=== PATIENT | female | born 1940 | race Caucasian/White ===

== ENCOUNTER 2017-11-08 14:37 | Inpatient (IN) | payer MEDICARE ==
[~2017-11-08] VITALS: Ht 165.1 cm; Wt 60.0 kg
[~2017-11-08 14:37] MED LIST: ACET325S8 PO; ASPI81 PO; CALC-137 PO; CLON0.5T PO; COEN100C5 PO; COZA50TA PO; DICL50 PO; DONE10TA14; LANSO15 PO; NAME10TA PO; OMEG600C2 PO; PRAV20 PO; SERT25TA83 PO; SUCR1TAB PO; TAB-TAB PO; ULTR50TA PO; VITA400D PO
[2017-11-08 14:46] VITALS: BP 193/92; PULSE 70; RESP 20; O2SAT 96
[2017-11-08 15:15] VITALS: BP 193/92; PULSE 70; RESP 17; TEMP 98.5; O2SAT 95
[2017-11-08] MEDS ORDERED: MORPHINE SULFATE 4 MG/ML INJ IV PUSH ONE (15:15)
--- NOTE | 2017-11-08 15:21 | PD ---
HPI Chief Complaint: Fall Time Seen by Provider: 15:05 Travel History International Travel<30 days: No Contact w/Intl Traveler<30days: No Traveled to known affect area: No History of Present Illness HPI 77-year-old female presents emergency department for evaluation of right hip pain that occurred after a fall just prior to arrival. Patient arrives by EVAC states that patient does not know how she fell. She apparently has a history of dementia and is very poor historian. Her arrives during the initial evaluation and assist with a history. Says that she does have a history of Parkinson's like movements and dementia. Says that he heard her fall and was immediately able to assist her however, she was unable to walk because of the pain in her left hip and leg. Says that he found her laying on her left side with her arm under her. I asked the patient where she was having pain and she points to her left hip. She denies any numbness or tingling. He tells me that she has a history of a compression fracture and a disc protrusion in the lower lumbar region but does not complain of any pain today. She also have a history of urinary incontinence. PFSH Past Medical History Hx Anticoagulant Therapy: Yes Arthritis: Yes Heart Rhythm Problems: No Cancer: No Cardiac Catheterization: No Cardiovascular Problems: Yes High Cholesterol: Yes Chest Pain: No Congestive Heart Failure: No Dementia: Yes Diabetes: No Endocrine: No Gastrointestinal Disorders: Yes (GERD) GERD: Yes Genitourinary: No Hepatitis: No Hiatal Hernia: No Hypertension: Yes Immune Disorder: No Implanted Vascular Access Dvce: Yes Musculoskeletal: Yes (ARTHRITIS) Neurologic: No Psychiatric: No Reproductive: No Respiratory: No Immunizations Current: No Myocardial Infarction: No Thyroid Disease: No Ulcer: No Tetanus Vaccination: Unknown Influenza Vaccination: Yes ?: Not Menopausal: Yes : 3 Para: 3 Past Surgical History Abdominal Surgery: No AICD: No Arteriovenous Shunt: No Cardiac Surgery: No Coronary Artery Bypass Graft: No Ear Surgery: No Endocrine Surgery: No Eye Surgery: No Genitourinary Surgery: No Gynecologic Surgery: No Insulin Pump: No Joint Replacement: Yes (RTK 08/18) Oral Surgery: Yes (T & A) Pacemaker: No Thoracic Surgery: No Tonsillectomy: Yes Other Surgery: Yes Social History Alcohol Use: No Tobacco Use: No Substance Use: No Allergies-Medications (Allergen,Severity, Reaction): Coded Allergies: Sulfa (Sulfonamide Antibiotics) (Unverified Allergy, Mild, 11/08/17) Reported Meds & Prescriptions Reported Meds & Active Scripts Active Reported Vitamin D3 (Cholecalciferol) 400 Unit Cap 1,600 Units PO DAILY Vitamin B-12 (Cyanocobalamin) 1,000 Mcg Tab 2,000 Mcg PO DAILY Mapap (Acetaminophen) 325 Mg Tab 650 Mg PO Q4-6H PRN Coq10 (Coenzyme Q10 (Ubidecarenone)) 50 Mg Cap Coq-10 (Coenzyme Q10 (Ubidecarenone)) 50 Mg Cap 200 Mg PO DAILY Aspirin 81 Mg Chew 81 Mg CHEW DAILY [Calcium] 900 Mg PO DAILY Multiple Vitamin 1 Tab 1 Tab PO DAILY [[place] 3 Krill Oil] 500 Mg PO DAILY Ofloxacin Opth Drops 0.3 % Drops 1 Drop EACH EYE Q6HR Tramadol (Tramadol HCl) 50 Mg Tab 50 Mg PO Q8H PRN Pantoprazole (Pantoprazole Sodium) 40 Mg Tab 40 Mg PO DAILY Pravastatin 40 Mg Tab 40 Mg PO BID Bupropion HCl ER 24 HR (Bupropion HCl) 150 Mg Tab 150 Mg DAILY Deplin (m-Ogvqmmeggxii-Ufblp) 15 Mg Cap Trintellix (Vortioxetine) 20 Mg Tab 20 Mg PO DAILY Carbidopa-Levodopa 25-100 Mg Tab 1 Tab PO Q8HR Clonazepam 0.5 Mg Tab 0.5 Mg PO DAILY Donepezil 10 Mg Tab 10 Mg PO HS Memantine 10 Mg Tab 10 Mg PO DAILY Losartan (Losartan Potassium) 25 Mg Tab 25 Mg PO DAILY Azithromycin 250 Mg Tab 250 Mg PO DIRECTED Take 2 tabs (500 mg) on day 1 then 1 tab daily x 4 days. Review of Systems Except as stated in HPI: all other systems reviewed are Neg Physical Exam Narrative GENERAL: WD, thin, in mild distress, fully packaged upon evaluation. SKIN: Focused skin assessment warm/dry. left arm- skin tears present with hematoma to mid forearm HEAD: Atraumatic. Normocephalic. EYES: Pupils equal and round. No scleral icterus. No injection or drainage. PERRLA, EOMI ENT: No nasal bleeding or discharge. Mucous membranes pink and moist. NECK: Trachea midline. No JVD. No midline tenderness CARDIOVASCULAR: Regular rate and rhythm. No murmur appreciated. RESPIRATORY: No accessory muscle use. Clear to auscultation. Breath sounds equal bilaterally. GASTROINTESTINAL: Abdomen soft, non-tender, nondistended. Hepatic and splenic margins not palpable. MUSCULOSKELETAL: No obvious deformities. No clubbing. No cyanosis. No edema. BACK: No CVA tenderness. No rash. No point tenderness on palpation of the spine. NEUROLOGICAL: Awake and alert. No obvious cranial nerve deficits. Motor grossly within normal limits. Normal speech. PSYCHIATRIC: Appropriate mood and affect; insight and judgment normal. Data Data Last Documented VS Vital Signs Date Time Temp Pulse Resp B/P (MAP) Pulse Ox O2 Delivery O2 Flow Rate FiO2 11/08/17 15:15 98.5 70 17 193/92 (125) 95 Room Air Orders Orders Ct Brain W/O Iv Contrast(Rout) (11/08/17 ) Ct Cerv Spine W/O Contrast (11/08/17 ) Femur (Ap & Lat/2vws) (11/08/17 ) Electrocardiogram (11/08/17 15:05) Complete Blood Count With Diff (11/08/17 15:05) Comprehensive Metabolic Panel (11/08/17 15:05) Prothrombin Time / Inr (Pt) (11/08/17 15:05) Act Partial Throm Time (Ptt) (11/08/17 15:05) Urinalysis - C+S If Indicated (11/08/17 15:05) Chest, Single Ap (11/08/17 15:05) Femur (Ap & Lat/2vws) (11/08/17 15:05) Iv Access Insert/Monitor (11/08/17 15:05) Morphine Inj (Morphine Inj) (11/08/17 15:15) Hip, Uni(Ap&Lat) W Ap Pelvis (11/08/17 ) Hand, Complete ([id number]) (11/08/17 ) Troponin I (11/08/17 15:23) Ckmb (Isoenzyme) Profile (11/08/17 15:23) Ondansetron Inj (Zofran Inj) (11/08/17 15:30) Ct Pelvis W/O Iv Contrast (11/08/17 ) Urinary Catheter Insert/Apply (11/08/17 16:36) Admit Order (Ed Use Only) (11/08/17 17:39) Labs Laboratory Tests Test 4/19/18 15:30 11/08/17 17:19 White Blood Count 11.6 TH/MM3 Red Blood Count 3.71 MIL/MM3 Hemoglobin 12.2 GM/DL Hematocrit 35.7 % Mean Corpuscular Volume 96.3 FL Mean Corpuscular Hemoglobin 32.9 PG Mean Corpuscular Hemoglobin Concent 34.2 % Red Cell Distribution Width 11.9 % Platelet Count 334 TH/MM3 Mean Platelet Volume 7.9 FL Neutrophils (%) (Auto) 86.0 % Lymphocytes (%) (Auto) 7.2 % Monocytes (%) (Auto) 6.2 % Eosinophils (%) (Auto) 0.3 % Basophils (%) (Auto) 0.3 % Neutrophils # (Auto) 9.9 TH/MM3 Lymphocytes # (Auto) 0.8 TH/MM3 Monocytes # (Auto) 0.7 TH/MM3 Eosinophils # (Auto) 0.0 TH/MM3 Basophils # (Auto) 0.0 TH/MM3 CBC Comment DIFF FINAL Differential Comment Prothrombin Time 10.7 SEC Prothromb Time International Ratio 1.1 RATIO Activated Partial Thromboplast Time 25.2 SEC Blood Urea Nitrogen 8 MG/DL Creatinine 0.90 MG/DL Random Glucose 90 MG/DL Total Protein 7.5 GM/DL Albumin 3.5 GM/DL Calcium Level 9.1 MG/DL Alkaline Phosphatase 71 U/L Aspartate Amino Transf (AST/SGOT) 24 U/L Alanine Aminotransferase (ALT/SGPT) 9 U/L Total Bilirubin 0.5 MG/DL Sodium Level 136 MEQ/L Potassium Level 4.3 MEQ/L Chloride Level 100 MEQ/L Carbon Dioxide Level 25.8 MEQ/L Anion Gap 10 MEQ/L Estimat Glomerular Filtration Rate 61 ML/MIN Total Creatine Kinase 88 U/L Troponin I LESS THAN 0.02 NG/ML Urine Color YELLOW Urine Turbidity CLEAR Urine pH 6.0 Urine Specific [place] 1.016 Urine Protein TRACE mg/dL Urine Glucose (UA) NEG mg/dL Urine Ketones 80 mg/dL Urine Occult Blood LARGE Urine Nitrite NEG Urine Bilirubin NEG Urine Urobilinogen LESS THAN 2.0 MG/DL Urine Leukocyte Esterase NEG Urine RBC /hpf Urine Hyaline Casts 3 /lpf Urine Mucus FEW /lpf Microscopic Urinalysis Comment CATH-CULT NOT IND MDM Medical Decision Making Medical Screen Exam Complete: Yes Emergency Medical Condition: Yes Differential Diagnosis Mechanical fall, dehydration, urinary tract infection, hip fracture, dementia Narrative Course 77-year-old female presents emergency department for evaluation of left hip pain that occurred after a fall just prior to arrival. Patient arrives by EVAC states that patient does not know how she fell. She apparently has a history of dementia and is very poor historian. Her , Ed Feliz, arrives during the initial evaluation and assist with a history. Says that she does have a history of Parkinson's like movements and dementia. Says that he heard her fall and was immediately able to assist her however, she was unable to walk because of the pain in her left hip and leg. Says that he found her laying on her left side with her arm under her. I asked the patient where she was having pain and she points to her left hip. She denies any numbness or tingling. He tells me that she has a history of a compression fracture and a disc protrusion in the lower lumbar region but does not complain of any pain today. She also have a history of urinary incontinence. Patient is a very poor historian as patient has severe dementia. states that her last surgery required anesthesia and patient never completely recovered from this. Consider spinal anesthesia for hip surgery. She saw Dr. Mcdonald for this surgery. EKG shows sinus rhythm at rate 79 without STEMI changes. Patient was given morphine and Zofran for pain. Labs and imaging studies ordered. Last Impressions Femur X-Ray 11/08/17 1505 Signed Impressions: Service Date/Time: October 15:45 - CONCLUSION: 1. No acute fracture or dislocation. Blaise Saul MD Chest X-Ray 11/08/17 1505 Signed Impressions: Service Date/Time: October 15:42 - CONCLUSION: Old granulomatous disease. Nothing acute. Girish Miller MD Pelvis CT 11/08/17 0000 Signed Impressions: Service Date/Time: October 16:24 - CONCLUSION: 1. Mildly angulated left femoral neck fracture. 2. Nondisplaced fractures of the left superior and inferior pubic rami. 3. Uncomplicated sigmoid diverticulosis. Nitish Mckeon MD Hip and Pelvis X-Ray 11/08/17 0000 Signed Impressions: Service Date/Time: October 15:46 - CONCLUSION: Subcapital fracture of the left hip. Girish Miller MD Head CT 11/08/17 0000 Signed Impressions: Service Date/Time: October 16:18 - CONCLUSION: 1. No evidence of acute infarct, hemorrhage, mass or edema. 2. Stable exam. Nitish Mckeon MD Hand X-Ray 11/08/17 0000 Signed Impressions: Service Date/Time: October 16:09 - CONCLUSION: 1. No evidence of acute fracture. 2. Severe bone demineralization. Nitish Mckeon MD Femur X-Ray 11/08/17 0000 Signed Impressions: Service Date/Time: October 15:46 - CONCLUSION: Left femoral neck fracture and pelvic fractures David Holder MD Cervical Spine CT 11/08/17 0000 Signed Impressions: Service Date/Time: October 16:18 - CONCLUSION: 1. Degenerative disc disease with spondylosis. 2. Intact vertebral body alignment. 3. No evidence of acute fracture. Nitish Mckeon MD My attending I spoke with the family regarding the findings. Advised that patient will require admission and repair of her hip fracture. I spoke with Dr. Andrew who accepted this patient. He advised that he place patient of Dr. Jalloh's service. Or 30 follow. Physician Communication Physician Communication I spoke with Dr. Andrew who accepted this patient. Was asked to place this patient under Dr. Jalloh. Diagnosis Primary Impression: Hip fracture Qualified Codes: S72.002A - Fracture of unspecified part of neck of left femur , initial encounter for closed fracture Admitting Information Admitting Physician Requests: Admit Condition: Stable Racquel Mann Nov 08, 2017 15:21
[2017-11-08] MEDS ORDERED: AZIT250T3 PO (15:23)
[2017-11-08] MEDS ORDERED: PRAV40TA2 PO (15:23)
[2017-11-08] MEDS ORDERED: LOSA25TA PO (15:23)
[2017-11-08] MEDS ORDERED: TRAM50TA PO (15:23)
[2017-11-08] MEDS ORDERED: DONE10TA7 PO (15:23)
[2017-11-08] MEDS ORDERED: VORT1TAB3 PO (15:23)
[2017-11-08] MEDS ORDERED: MEMA1TAB2 PO (15:23)
[2017-11-08] MEDS ORDERED: CLON0.5T PO (15:23)
[2017-11-08] MEDS ORDERED: L-MECAP2 (15:23)
[2017-11-08] MEDS ORDERED: PANT40TA3 PO (15:23)
[2017-11-08] MEDS ORDERED: BUPR150T3 (15:23)
[2017-11-08] MEDS ORDERED: CARB25TA9 PO (15:23)
[2017-11-08] MEDS ORDERED: ONDANSETRON HCL 4 MG/2 ML VIAL IV PUSH ONE (15:30)
[2017-11-08] MEDS ORDERED: COQ-50CA2 PO (15:37)
[2017-11-08] MEDS ORDERED: MULTTAB67 PO (15:37)
[2017-11-08] MEDS ORDERED: ASPI-516 CHEW (15:37)
[2017-11-08] MEDS ORDERED: CALCTAB98 PO (15:37)
[2017-11-08] MEDS ORDERED: VITA10002 PO (15:37)
[2017-11-08] MEDS ORDERED: CHOL1CAP8 PO (15:37)
[2017-11-08] MEDS ORDERED: OFLO0.3D5 EACH EYE (15:37)
[2017-11-08] MEDS ORDERED: OMEGA 3 KRILL OIL PO (15:37)
[2017-11-08] MEDS ORDERED: MAPA325T PO (15:37)
[2017-11-08] MEDS ORDERED: COQ150CA (15:37)
[2017-11-08 16:09] LABS: AUTOMATED NEUTROPHIL # 9.9 TH/MM3 (1.8-7.7); BASOPHIL % 0.3 % (0.0-2.0); EOSINOPHIL % 0.3 % (0.0-4.0); HEMATOCRIT 35.7 % (35.0-46.0); HEMOGLOBIN 12.2 GM/DL (11.6-15.3); LYMPH % 7.2 % (9.0-44.0); LYMPHOCYTE # 0.8 TH/MM3 (1.0-4.8); MEAN CELL VOLUME 96.3 FL (80.0-100.0); MEAN CORPUSCULAR HEMOGLOBIN 32.9 PG (27.0-34.0); MEAN CORPUSCULAR HGB CONC 34.2 % (32.0-36.0); MEAN PLATELET VOLUME 7.9 FL (7.0-11.0); MONO % 6.2 % (0.0-8.0); MONOCYTE # 0.7 TH/MM3 (0-0.9); PLATELET COUNT 334 TH/MM3 (150-450); RED BLOOD COUNT 3.71 MIL/MM3 (4.00-5.30); RED CELL DISTRIBUTION WIDTH 11.9 % (11.6-17.2); WHITE BLOOD COUNT 11.6 TH/MM3 (4.0-11.0)
[2017-11-08 16:24] LABS: INTERNATIONAL NORMALIZED RATIO 1.1 RATIO; PROTHROMBIN TIME - PATIENT 10.7 SEC (9.8-11.6)
[2017-11-08 16:26] LABS: ALBUMIN 3.5 GM/DL (3.4-5.0); AST (GOT) 24 U/L (15-37); BICARBONATE 25.8 MEQ/L (21.0-32.0); BLOOD UREA NITROGEN 8 MG/DL (7-18); CALCIUM 9.1 MG/DL (8.5-10.1); CHLORIDE 100 MEQ/L (98-107); GLOMERULAR FILTRATION RATE 61 ML/MIN (>89); GLUCOSE,RANDOM 90 MG/DL (74-106); SODIUM (NA) 136 MEQ/L (136-145)
[2017-11-08 16:29] LABS: ALKALINE PHOSPHATASE 71 U/L (45-117); ALT (GPT) 9 U/L (10-53); TOTAL BILIRUBIN ADULT 0.5 MG/DL (0.2-1.0); TOTAL PROTEIN 7.5 GM/DL (6.4-8.2)
[2017-11-08 16:32] LABS: TROPONIN I LESS THAN 0.02 NG/ML (0.02-0.05)
--- NOTE | 2017-11-08 16:43 | RADRPT ---
EXAM DATE/TIME: 11/08/2017 15:45 [facility] COMPARISON: No previous studies available for comparison. INDICATIONS : Fell at home. MEDICAL HISTORY : Parkinson's, dementia per nurse SURGICAL HISTORY : right knee replacement ENCOUNTER: Initial ACUITY: 1 day PAIN SCORE: Non-responsive. LOCATION: Right femur FINDINGS: Two view examination of the right femur demonstrates no evidence of fracture or dislocation. There is a total knee arthroplasty in place. Bony mineralization is normal. The soft tissue structures are i ntact. CONCLUSION: 1. No acute fracture or dislocation. Blaise Saul MD on November 08, 2017 at 16:31 Board Certified Radiologist. This report was verified electronically.
--- NOTE | 2017-11-08 16:45 | RADRPT ---
EXAM DATE/TIME: 11/08/2017 16:09 [facility] COMPARISON: No previous studies available for comparison. INDICATIONS : Fell at home. MEDICAL HISTORY : Parkinson's , dementia per nurse SURGICAL HISTORY : right knee replacement ENCOUNTER: Initial ACUITY: 1 day PAIN SCORE: Non-responsive. LOCATION: Left hand FINDINGS: Three view examination of the left hand demonstrates no soft tissue swelling, dislocation, or fractur e. The carpal bones appear intact. The interphalangeal and metacarpophalangeal joints are intact. Severe bone demineralization is noted. CONCLUSION: 1. No evidence of acute fracture. 2. Severe bone demineralization. Nitish Mckeon MD on November 08, 2017 at 16:42 Board Certified Radiologist. This report was verified electronically.
--- NOTE | 2017-11-08 16:46 | RADRPT ---
EXAM DATE/TIME: 11/08/2017 16:18 [facility] COMPARISON: CT BRAIN W/O CONTRAST, June 08, 2015, 19:31. INDICATIONS : Fall, altered mental status RADIATION DOSE: 38.27 CTDIvol (mGy) MEDICAL HISTORY : Dementia. Hypertension. Gastroesophageal reflux disease. SURGICAL HISTORY : None. ENCOUNTER: Initial ACUITY: 1 day PAIN SCALE: 5/10 LOCATION: Bilateral cranial TECHNIQUE: Multiple contiguous axial images were obtained of the head. Using automated exposure control and adj ustment of the mA and/or kV according to patient size, radiation dose was kept as low as reasonably a chievable to obtain optimal diagnostic quality images. DICOM format image data is available electro nically for review and comparison. FINDINGS: CEREBRUM: The ventricles are normal for age. No evidence of midline shift, mass lesion, hemorrhage or acute in farction. No extra-axial fluid collections are seen. POSTERIOR FOSSA: The cerebellum and brainstem are intact. The 4th ventricle is midline. The cerebellopontine angle i s unremarkable. EXTRACRANIAL: The visualized portion of the orbits is intact. SKULL: The calvaria is intact. No evidence of skull fracture. CONCLUSION: 1. No evidence of acute infarct, hemorrhage, mass or edema. 2. Stable exam. Nitish Mckeon MD on November 08, 2017 at 16:44 Board Certified Radiologist. This report was verified electronically.
--- NOTE | 2017-11-08 16:49 | RADRPT ---
EXAM DATE/TIME: 11/08/2017 15:42 [facility] COMPARISON: CHEST SINGLE AP, June 08, 2015, 18:39. INDICATIONS : Fell at home. MEDICAL HISTORY : Parkinson's, dementia per nurse SURGICAL HISTORY : right knee replacement ENCOUNTER: Initial ACUITY: 1 day PAIN SCORE: Non-responsive. LOCATION: Bilateral chest FINDINGS: A single view of the chest demonstrates the lungs to be symmetrically aerated without evidence of mas s, infiltrate or effusion. Granulomatous calcifications in the right paratracheal and right hilar dis tribution. Heart size is normal. Osseous structures are intact. CONCLUSION: Old granulomatous disease. Nothing acute. Girish Miller MD on November 08, 2017 at 16:40 Board Certified Radiologist. This report was verified electronically.
--- NOTE | 2017-11-08 16:50 | RADRPT ---
EXAM DATE/TIME: 11/08/2017 16:18 [facility] COMPARISON: No previous studies available for comparison. INDICATIONS : Fall RADIATION DOSE: 17.22 CTDIvol (mGy) MEDICAL HISTORY : Dementia. Hypertension. Gastroesophageal reflux disease. SURGICAL HISTORY : None. ENCOUNTER: Initial ACUITY: 1 day PAIN SCALE: 4/10 LOCATION: neck TECHNIQUE: Volumetric scanning of the cervical spine was performed. Multiplanar reconstructions in the sagittal, coronal and oblique axial planes were performed. Using automated exposure control and adjustment o f the mA and/or kV according to patient size, radiation dose was kept as low as reasonably achievable to obtain optimal diagnostic quality images. DICOM format image data is available electronically f or review and comparison. FINDINGS: Alignment: Intact without evidence of traumatic listhesis. Osseous structures and facet joints: Vertebral bodies and posterior elements are intact without evidence of fracture. Facet joints are sat isfactory aligned. Intervertebral disc spaces: Moderate degenerative disc disease with disc space narrowing and marginal spondylosis is noted. There are significant changes at C4-5, C5-6 and C6-7. There is no evidence of soft disc extrusion. Neurologic structures: No evidence of epidural, intradural or intramedullary soft tissue abnormalities. CONCLUSION: 1. Degenerative disc disease with spondylosis. 2. Intact vertebral body alignment. 3. No evidence of acute fracture. Nitish Mckeon MD on November 08, 2017 at 16:44 Board Certified Radiologist. This report was verified electronically.
--- NOTE | 2017-11-08 17:00 | PD ---
Physical Exam Date Seen by Provider: Nov 08, 2017 Narrative The patient presents status post a fall for evaluation of probable left hip fracture. Her did not witness the fall but heard it and immediately went to her and found her lying on her left side. He reports that she has been complaining bitterly with left hip pain since that time. She has dementia. Data Data Last Documented VS Vital Signs Date Time Temp Pulse Resp B/P (MAP) Pulse Ox O2 Delivery O2 Flow Rate FiO2 11/08/17 15:15 98.5 70 17 193/92 (125) 95 Room Air Orders Orders Ct Brain W/O Iv Contrast(Rout) (11/08/17 ) Ct Cerv Spine W/O Contrast (11/08/17 ) Femur (Ap & Lat/2vws) (11/08/17 ) Electrocardiogram (11/08/17 15:05) Complete Blood Count With Diff (11/08/17 15:05) Comprehensive Metabolic Panel (11/08/17 15:05) Prothrombin Time / Inr (Pt) (11/08/17 15:05) Act Partial Throm Time (Ptt) (11/08/17 15:05) Urinalysis - C+S If Indicated (11/08/17 15:05) Chest, Single Ap (11/08/17 15:05) Femur (Ap & Lat/2vws) (11/08/17 15:05) Iv Access Insert/Monitor (11/08/17 15:05) Morphine Inj (Morphine Inj) (11/08/17 15:15) Hip, Uni(Ap&Lat) W Ap Pelvis (11/08/17 ) Hand, Complete ([id number]) (11/08/17 ) Troponin I (11/08/17 15:23) Ckmb (Isoenzyme) Profile (11/08/17 15:23) Ondansetron Inj (Zofran Inj) (11/08/17 15:30) Ct Pelvis W/O Iv Contrast (11/08/17 ) Urinary Catheter Insert/Apply (11/08/17 16:36) Labs Laboratory Tests Test 11/08/17 15:30 White Blood Count 11.6 TH/MM3 Red Blood Count 3.71 MIL/MM3 Hemoglobin 12.2 GM/DL Hematocrit 35.7 % Mean Corpuscular Volume 96.3 FL Mean Corpuscular Hemoglobin 32.9 PG Mean Corpuscular Hemoglobin Concent 34.2 % Red Cell Distribution Width 11.9 % Platelet Count 334 TH/MM3 Mean Platelet Volume 7.9 FL Neutrophils (%) (Auto) 86.0 % Lymphocytes (%) (Auto) 7.2 % Monocytes (%) (Auto) 6.2 % Eosinophils (%) (Auto) 0.3 % Basophils (%) (Auto) 0.3 % Neutrophils # (Auto) 9.9 TH/MM3 Lymphocytes # (Auto) 0.8 TH/MM3 Monocytes # (Auto) 0.7 TH/MM3 Eosinophils # (Auto) 0.0 TH/MM3 Basophils # (Auto) 0.0 TH/MM3 CBC Comment DIFF FINAL Differential Comment Prothrombin Time 10.7 SEC Prothromb Time International Ratio 1.1 RATIO Activated Partial Thromboplast Time 25.2 SEC Blood Urea Nitrogen 8 MG/DL Creatinine 0.90 MG/DL Random Glucose 90 MG/DL Total Protein 7.5 GM/DL Albumin 3.5 GM/DL Calcium Level 9.1 MG/DL Alkaline Phosphatase 71 U/L Aspartate Amino Transf (AST/SGOT) 24 U/L Alanine Aminotransferase (ALT/SGPT) 9 U/L Total Bilirubin 0.5 MG/DL Sodium Level 136 MEQ/L Potassium Level 4.3 MEQ/L Chloride Level 100 MEQ/L Carbon Dioxide Level 25.8 MEQ/L Anion Gap 10 MEQ/L Estimat Glomerular Filtration Rate 61 ML/MIN MDM Supervised Visit with DIVINA: Yes Narrative Course I, Dr. Mcgee, have reviewed the advance practice practitioner's documentation and am in agreement, met with the patient face to face, made the diagnosis, and the medical decision making was done by me. *My assessment and Findings: She is tender in the left groin and over the left greater trochanter. There is no shortening or malrotation of her leg. Passive range of motion is resisted and she complains with pain. She is distally neurovascularly intact. Please see Racquel Mann PA-C's note for further details, lab and radiology results, final diagnosis and disposition. Disposition: 01 DISCHARGE HOME Condition: Stable Kritsine Mcgee MD Nov 08, 2017 17:00
--- NOTE | 2017-11-08 17:02 | RADRPT ---
EXAM DATE/TIME: 11/08/2017 16:24 [facility] COMPARISON: FEMUR RIGHT (AP & LAT/2VWS), November 08, 2017, 15:45. FEMUR LEFT (AP & LAT/2VWS), November 08, 2017, 15:4 6. INDICATIONS : Fall ORAL CONTRAST: No oral contrast ingested. RADIATION DOSE: 9.81 CTDIvol (mGy) MEDICAL HISTORY : Dementia. Hypertension. Gastroesophageal reflux disease. SURGICAL HISTORY : None. ENCOUNTER: Initial ACUITY: 1 day PAIN SCALE: 10/10 LOCATION: Bilateral pelvis TECHNIQUE: Volumetric scanning of the pelvis was performed. Using automated exposure control and adjustment of the mA and/or kV according to patient size, radiation dose was kept as low as reasonably achievable t o obtain optimal diagnostic quality images. DICOM format image data is available electronically for review and comparison. FINDINGS: BOWEL/MESENTERY: Multiple diverticula are seen throughout the sigmoid colon. There are no active inflammatory changes. BLADDER: There is no wall thickening or mass. RETROPERITONEUM: There is no aneurysm or lymphadenopathy. REPRODUCTIVE: Within normal limits. INGUINAL: There is no lymphadenopathy or hernia. MUSCULOSKELETAL: A fracture is identified through the base of the left femoral neck. There is slight angulation. Femor al head remains well-seated within the acetabulum. Nondisplaced fractures are identified of the left superior and inferior pubic rami. CONCLUSION: 1. Mildly angulated left femoral neck fracture. 2. Nondisplaced fractures of the left superior and inferior pubic rami. 3. Uncomplicated sigmoid diverticulosis. Nitish Mckeon MD on November 08, 2017 at 16:55 Board Certified Radiologist. This report was verified electronically.
--- NOTE | 2017-11-08 17:02 | RADRPT ---
EXAM DATE/TIME: 11/08/2017 15:46 [facility] COMPARISON: No previous studies available for comparison. INDICATIONS : Fell at home. MEDICAL HISTORY : Parkinson's, dementia per nurse SURGICAL HISTORY : right knee replacement ENCOUNTER: Initial ACUITY: 1 day PAIN SCORE: Non-responsive. LOCATION: Left hip and pelvis FINDINGS: Examination of the left hip was performed with AP Pelvis. Limited exam due to rotation. There does ap pear to be a subcapital fracture of the left hip, however. Bony pelvis is otherwise grossly intact. CONCLUSION: Subcapital fracture of the left hip. Girish Miller MD on November 08, 2017 at 16:59 Board Certified Radiologist. This report was verified electronically.
[2017-11-08] MEDS ORDERED: ONDANSETRON HCL 4 MG/2 ML VIAL IV PUSH PRN (17:45)
[2017-11-08 18:02] LABS: BILIRUBIN, URINE NEG (NEG); BLOOD, URINE LARGE (NEG); GLUCOSE,URINE NEG (NEG); HYALINE CAST, URINE 3 /lpf (RARE); KETONE, URINE 80 mg/dL (NEG); MUCUS URINE FEW /lpf (OCC); NITRITE,URINE NEG (NEG); URINE COLOR YELLOW (YELLW/STRAW); URINE LEUKOCYTE ESTERASE NEG (NEG)
--- NOTE | 2017-11-08 18:17 | HHI.HP ---
HPI Service [facility] Hospitalists Primary Care Physician Joaquín Madison MD Admission Diagnosis left hip fracture Chief Complaint: fall, left hip pain, inability to ambulate aftef fall Travel History International Travel<30 Days: No Contact w/Intl Traveler <30 Da: No Traveled to Known Affected Are: No History of Present Illness History is obtained primarily from chart review and discussion with ER provider as patient is unable to provide any significant history given her underlying dementia and her is not immediately available. I called phone number listed and leave a message. 77-year-old female with history of dementia associated with extrapyramidal disorder/Parkinson's syndrome presents emergency department for evaluation of right hip pain that occurred after a fall just prior to arrival. Patient arrives by EVAC states that patient does not know how she fell. She apparently has a history of dementia and is very poor historian. Her was present during the initial evaluation and assisted with a history. Says that she does have a history of Parkinson's like movements and dementia. Says that he heard her fall in their home and was immediately able to assist her however, she was unable to walk because of the pain in her left hip and leg. He did not see the fall and is not sure what actually caused her to fall. Says that he found her laying on her left side with her arm under her. Patient reports she has pain in her left arm and in her hip/pelvis region. She denies any numbness or tingling. He tells me that she has a history of a compression fracture and a disc protrusion in the lower lumbar region but apparently did not complain of any lower back pain today. She also has a history of urinary incontinence. Review of Systems ROS Limitations: Altered Mental Status Genitourinary: COMPLAINS OF: Urinary incontinence Musculoskeletal: COMPLAINS OF: Joint pain, Back pain Hematologic/lymphatic: COMPLAINS OF: Bruising Psychiatric: COMPLAINS OF: Anxiety, Confusion, Depression, Agitation Past Family Social History Past Medical History Cervical facet syndrome COPD CKD-3 Dementia Extrapyramidal d/o MDD Anxiety HTN Hyperlipidemia Past Surgical History Rt knee arthroscopy x2 in 1960s Rt TKA 2013 Cataract surgery bilat Br Bx- several- all B9 Nasal septoplasty T&A Reported Medications Vitamin D3 (Cholecalciferol) 400 Unit Cap 1,600 Units PO DAILY Vitamin B-12 (Cyanocobalamin) 1,000 Mcg Tab 2,000 Mcg PO DAILY Mapap (Acetaminophen) 325 Mg Tab 650 Mg PO Q4-6H PRN Coq10 (Coenzyme Q10 (Ubidecarenone)) 50 Mg Cap Coq-10 (Coenzyme Q10 (Ubidecarenone)) 50 Mg Cap 200 Mg PO DAILY Aspirin 81 Mg Chew 81 Mg CHEW DAILY [Calcium] 900 Mg PO DAILY Multiple Vitamin 1 Tab 1 Tab PO DAILY [[place] 3 Krill Oil] 500 Mg PO DAILY Ofloxacin Opth Drops 0.3 % Drops 1 Drop EACH EYE Q6HR Tramadol (Tramadol HCl) 50 Mg Tab 50 Mg PO Q8H PRN Pantoprazole (Pantoprazole Sodium) 40 Mg Tab 40 Mg PO DAILY Pravastatin 40 Mg Tab 40 Mg PO BID Bupropion HCl ER 24 HR (Bupropion HCl) 150 Mg Tab 150 Mg DAILY Deplin (y-Hawouohwgpyq-Okohz) 15 Mg Cap Trintellix (Vortioxetine) 20 Mg Tab 20 Mg PO DAILY Carbidopa-Levodopa 25-100 Mg Tab 1 Tab PO Q8HR Clonazepam 0.5 Mg Tab 0.5 Mg PO qhs Donepezil 10 Mg Tab 10 Mg PO HS Memantine 10 Mg Tab 10 Mg PO DAILY Losartan (Losartan Potassium) 25 Mg Tab 25 Mg PO DAILY Azithromycin 250 Mg Tab 250 Mg PO DIRECTED Take 2 tabs (500 mg) on day 1 then 1 tab daily x 4 days...started 11/07/17 Allergies: Coded Allergies: Sulfa (Sulfonamide Antibiotics) (Unverified Allergy, Mild, 11/08/17) Family History nc Social History No tobacco since 1984, smoked 1.5 to 2 ppd for 20 yrs prior No regular EtOH use 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 She is confused and is unable to tell me her current location. She is able to provide for me her first name and her 's name. SKIN: Ecchymosis along the left medial arm as well as some mild erythema of the left hand. Xerotic. HEAD: Atraumatic. Normocephalic. No temporal or scalp tenderness. EYES: Pupils equal round and reactive. Extraocular motions intact. No scleral icterus. No injection or drainage. ENT: Nose without bleeding, purulent drainage or septal hematoma. Airway patent. NECK: Trachea midline. No JVD or lymphadenopathy. Supple, nontender, no meningeal signs. CARDIOVASCULAR: Regular rate and rhythm without murmurs, gallops, or rubs. RESPIRATORY: Clear to auscultation. Breath sounds equal bilaterally. No wheezes , rales, or rhonchi. GASTROINTESTINAL: Abdomen soft, non-tender, nondistended. No hepato-splenomegaly , or palpable masses. No guarding. MUSCULOSKELETAL: Extremities without clubbing, cyanosis, or edema. TTP over left lateral hip and ant pelvis. No calf tenderness. BARKER. NEUROLOGICAL: Awake and alert, but confused. Cranial nerves II through XII intact. Motor and sensory grossly within normal limits. Normal speech. Laboratory Laboratory Tests Test 11/08/17 15:30 11/08/17 17:19 White Blood Count 11.6 Red Blood Count 3.71 Hemoglobin 12.2 Hematocrit 35.7 Mean Corpuscular Volume 96.3 Mean Corpuscular Hemoglobin 32.9 Mean Corpuscular Hemoglobin Concent 34.2 Red Cell Distribution Width 11.9 Platelet Count 334 Mean Platelet Volume 7.9 Neutrophils (%) (Auto) 86.0 Lymphocytes (%) (Auto) 7.2 Monocytes (%) (Auto) 6.2 Eosinophils (%) (Auto) 0.3 Basophils (%) (Auto) 0.3 Neutrophils # (Auto) 9.9 Lymphocytes # (Auto) 0.8 Monocytes # (Auto) 0.7 Eosinophils # (Auto) 0.0 Basophils # (Auto) 0.0 CBC Comment DIFF FINAL Differential Comment Prothrombin Time 10.7 Prothromb Time International Ratio 1.1 Activated Partial Thromboplast Time 25.2 Blood Urea Nitrogen 8 Creatinine 0.90 Random Glucose 90 Total Protein 7.5 Albumin 3.5 Calcium Level 9.1 Alkaline Phosphatase 71 Aspartate Amino Transf (AST/SGOT) 24 Alanine Aminotransferase (ALT/SGPT) 9 Total Bilirubin 0.5 Sodium Level 136 Potassium Level 4.3 Chloride Level 100 Carbon Dioxide Level 25.8 Anion Gap 10 Estimat Glomerular Filtration Rate 61 Total Creatine Kinase 88 Troponin I LESS THAN 0.02 Urine Color YELLOW Urine Turbidity CLEAR Urine pH 6.0 Urine Specific [place] 1.016 Urine Protein TRACE Urine Glucose (UA) NEG Urine Ketones 80 Urine Occult Blood LARGE Urine Nitrite NEG Urine Bilirubin NEG Urine Urobilinogen LESS THAN 2.0 Urine Leukocyte Esterase NEG Urine RBC Urine Hyaline Casts 3 Urine Mucus FEW Microscopic Urinalysis Comment CATH-CULT NOT IND Result Diagram: 11/08/17 1530 11/08/17 1530 Imaging Last 72 hours Impressions Femur X-Ray 11/08/17 1505 Signed Impressions: Service Date/Time: October 15:45 - CONCLUSION: 1. No acute fracture or dislocation. Blaise Saul MD Chest X-Ray 11/08/17 1505 Signed Impressions: Service Date/Time: October 15:42 - CONCLUSION: Old granulomatous disease. Nothing acute. Girish Miller MD Pelvis CT 11/08/17 0000 Signed Impressions: Service Date/Time: October 16:24 - CONCLUSION: 1. Mildly angulated left femoral neck fracture. 2. Nondisplaced fractures of the left superior and inferior pubic rami. 3. Uncomplicated sigmoid diverticulosis. Nitish Mckeon MD Hip and Pelvis X-Ray 11/08/17 0000 Signed Impressions: Service Date/Time: October 15:46 - CONCLUSION: Subcapital fracture of the left hip. Girish Miller MD Head CT 11/08/17 0000 Signed Impressions: Service Date/Time: October 16:18 - CONCLUSION: 1. No evidence of acute infarct, hemorrhage, mass or edema. 2. Stable exam. Nitish Mckeon MD Hand X-Ray 11/08/17 0000 Signed Impressions: Service Date/Time: October 16:09 - CONCLUSION: 1. No evidence of acute fracture. 2. Severe bone demineralization. Nitish Mckeon MD Femur X-Ray 11/08/17 0000 Signed Impressions: Service Date/Time: October 15:46 - CONCLUSION: Left femoral neck fracture and pelvic fractures David Holder MD Cervical Spine CT 11/08/17 0000 Signed Impressions: Service Date/Time: October 16:18 - CONCLUSION: 1. Degenerative disc disease with spondylosis. 2. Intact vertebral body alignment. 3. No evidence of acute fracture. MD Nelly Lubin VTE Risk Assessment Nelly VTE Risk Assessment: Mod/High Risk (score >= 2) Caprini Risk Assessment Model Point Value = 1 Point Value = 2 Point Value = 3 Point Value = 5 Age 41-60 Minor surgery BMI > 25 kg/m2 Swollen legs Varicose veins or History of unexplained or recurrent spontaneous Oral contraceptives or hormone replacement Sepsis (< 1 month) Serious lung disease, including pneumonia (< 1 month) Abnormal pulmonary function Acute myocardial infarction Congestive heart failure (< 1 month) History of inflammatory bowel disease Medical patient at bed rest Age 61-74 Arthroscopic surgery Major open surgery (> 45 min) Laparoscopic surgery (> 45 min) Malignancy Confined to bed (> 72 hours) Immobilizing plaster cast Central venous access Age >= 75 History of VTE Family history of VTE Factor V Leiden Prothrombin [id number] Lupus anticoagulant Anticardiolipin antibodies Elevated serum homocysteine Heparin-induced thrombocytopenia Other congenital or acquired thrombophilia Stroke (< 1 month) Elective arthroplasty Hip, pelvis, or leg fracture Acute spinal cord injury (< 1 month) Prophylaxis Regimen Total Risk Factor Score Risk Level Prophylaxis Regimen 0-1 Low Early ambulation 2 Moderate Order ONE of the following: *Sequential Compression Device (SCD) *Heparin 5000 units SQ BID 3-4 Higher Order ONE of the following medications: *Heparin 5000 units SQ TID *Enoxaparin/Lovenox 40 mg SQ daily (WT < 150 kg, CrCl > 30 mL/min) *Enoxaparin/Lovenox 30 mg SQ daily (WT < 150 kg, CrCl > 10-29 mL/min) *Enoxaparin/Lovenox 30 mg SQ BID (WT < 150 kg, CrCl > 30 mL/min) AND/OR *Sequential Compression Device (SCD) 5 or more Highest Order ONE of the following medications: *Heparin 5000 units SQ TID (Preferred with Epidurals) *Enoxaparin/Lovenox 40 mg SQ daily (WT < 150 kg, CrCl > 30 mL/min) *Enoxaparin/Lovenox 30 mg SQ daily (WT < 150 kg, CrCl > 10-29 mL/min) *Enoxaparin/Lovenox 30 mg SQ BID (WT < 150 kg, CrCl > 30 mL/min) AND *Sequential Compression Device (SCD) Assessment and Plan Problem List: (1) Femoral neck fracture ICD Codes: S72.009A - Fracture of unspecified part of neck of unspecified femur , initial encounter for closed fracture Status: Acute Plan: management per ortho, pain meds, antiemetics (2) Pelvic fracture ICD Codes: S32.9XXA - Fracture of unspecified parts of lumbosacral spine and pelvis, initial encounter for closed fracture Status: Acute Plan: pain meds, mgmt per ortho (3) GERD (gastroesophageal reflux disease) ICD Codes: K21.9 - Gastro-esophageal reflux disease without esophagitis Plan: continue protonix (4) Extrapyramidal disorder ICD Codes: G25.9 - Extrapyramidal and movement disorder, unspecified Status: Chronic Plan: continue meds. Outpt f/u with neurology. (5) Major depression ICD Codes: F32.9 - Major depressive disorder, single episode, unspecified Status: Chronic Plan: continue meds (6) Anxiety ICD Codes: F41.9 - Anxiety disorder, unspecified Status: Chronic Plan: continue meds (7) Hypertension ICD Codes: I10 - Essential (primary) hypertension Status: Chronic Plan: continue meds. Manage pain. (8) Dementia ICD Codes: F03.90 - Unspecified dementia without behavioral disturbance Status: Chronic Plan: continue meds. (9) Bronchitis ICD Codes: J40 - Bronchitis, not specified as acute or chronic Status: Acute Plan: Pt was started on azithromycin by her primary care physician yesterday. Continue that since she has already started this medicine. Physician Certification 2 Midnight Certification Type: Admission for Inpatient Services Order for Inpatient Services The services are ordered in accordance with Medicare regulations or non- Medicare payer requirements, as applicable. In the case of services not specified as inpatient-only, they are appropriately provided as inpatient services in accordance with the 2-midnight benchmark. Estimated LOS (days): 3 days is the estimated time the patient will need to remain in the hospital, assuming treatment plan goals are met and no additional complications. Post-Hospital Plan: SNF Problem Qualifiers (1) Femoral neck fracture: (2) Major depression: (3) Hypertension: Qualified Codes: I10 - Essential (primary) hypertension (4) Dementia: Bryant Andrew MD PhD Nov 08, 2017 18:17
--- NOTE | 2017-11-08 19:12 | RADRPT ---
EXAM DATE/TIME: 11/08/2017 15:46 [facility] COMPARISON: No previous studies available for comparison. INDICATIONS : Left femur pain, fell MEDICAL HISTORY : Dementia. Hypertension. Gastroesophageal reflux disease SURGICAL HISTORY : None. ENCOUNTER: Initial ACUITY: 1 day PAIN SCORE: 10/10 LOCATION: Left Femur FINDINGS: There is a moderately angulated and slightly impacted left femoral neck fracture. The remainder of th e left femur is grossly intact. There appear to be fractures involving the pubic rami adjacent to the symphysis. CONCLUSION: Left femoral neck fracture and pelvic fractures David Holder MD on November 08, 2017 at 19:09 Board Certified Radiologist. This report was verified electronically.
[2017-11-08] MEDS: MORPHINE SULFATE 2 MG/ML SYRINGE IV PUSH PRN ×2 (20:24→23:35)
[2017-11-08] MEDS: AZITHROMYCIN INJ 500 MG in SODIUM CHLOR 0.9% 250 ML INJ 250 ML IV SCH (20:24)
[2017-11-08 20:25] VITALS: BP 178/82
[2017-11-08 20:30] VITALS: BP 176/92; PULSE 78; RESP 18; TEMP 99.1; O2SAT 95
[2017-11-09] VITALS (7 sets, daily range): BP systolic 132–179; BP diastolic 64–88; PULSE 74–91; RESP 16–19; TEMP 97–98.4; O2SAT 95–98
[2017-11-09] MEDS ORDERED: CHLORHEXIDINE GLUCONATE 2 % 1 PACK (2 CLOTHS) TOPICAL PRN (05:00)
[2017-11-09] MEDS ORDERED: POVIDONE IODINE 5% (ANTISEPSIS KIT) 4 APPLICATIONS EACH NARE PRN (05:00)
[2017-11-09] MEDS ORDERED: METOPROLOL TARTRATE 25 MG TAB PO PRN (05:00)
[2017-11-09] MEDS ORDERED: LACTATED RINGER'S 1000 ML IV PRN (05:00)
[2017-11-09] MEDS: MORPHINE SULFATE 2 MG/ML SYRINGE IV PUSH PRN (05:30)
--- NOTE | 2017-11-09 06:46 | PD.ORT.PN ---
Subjective Subjective Remarks Lives at home with . Mechanical fall. Patient is confused and complains of left hip and left elbow pain Objective Vitals Vital Signs Date Time Temp Pulse Resp B/P (MAP) Pulse Ox O2 Delivery O2 Flow Rate FiO2 11/09/17 04:00 97.9 82 18 165/73 (103) 95 11/09/17 00:00 98.4 91 16 174/85 (114) 95 11/08/17 20:30 99.1 78 18 176/92 (120) 95 11/08/17 20:25 89 20 178/82 (114) 98 11/08/17 15:15 98.5 70 17 193/92 (125) 95 Room Air 11/08/17 15:11 69 18 95 Room Air 11/08/17 14:46 70 20 193/92 (125) 96 I/O 11/08/17 11/08/17 11/08/17 11/09/17 11/09/17 11/09/17 07:00 15:00 23:00 07:00 15:00 23:00 Intake Total 0 ml Output Total 450 ml Balance -450 ml Intake Oral 0 ml Output Urine Total 450 ml # Bowel Movements 0 Result Diagram: 11/08/17 1530 11/08/17 1530 Other Results Laboratory Tests Test 11/08/17 15:30 Prothromb Time International Ratio 1.1 RATIO Prothrombin Time 10.7 SEC (9.8-11.6) Imaging Last 24 hours Impressions Femur X-Ray 11/08/17 1505 Signed Impressions: Service Date/Time: October 15:45 - CONCLUSION: 1. No acute fracture or dislocation. Blaise Saul MD Chest X-Ray 11/08/17 1505 Signed Impressions: Service Date/Time: October 15:42 - CONCLUSION: Old granulomatous disease. Nothing acute. Girish Miller MD Objective Remarks Right upper extremity: No pain with range of motion of the shoulder elbow or wrist. Neurovascular intact Right lower extremity: Full range of motion neurovascularly intact Left upper extremity: Pain to palpation of shoulder or wrist. She does have significant bruising and pain over the elbow. Distally she has intact sensation good capillary refills. Left lower extremity: Pain to palpation over hip and movement of the leg. She has no tenderness to palpation of just the ankle or knee. Distally she has intact sensation with good capillary refill Assessment & Plan Assessment and Plan Left femoral neck fracture Surgery this morning for left hip hemiarthroplasty N.p.o. Sign consents Bruising to left elbow x-rays were ordered this morning -for evaluation Primo Day Jr. Nov 09, 2017 06:46
[2017-11-09] MEDS ORDERED: XARE10TA PO (06:48)
[2017-11-09] MEDS ORDERED: NORC5TAB PO (06:48)
[2017-11-09] MEDS ORDERED: WALKER/ADULT/FO1 MIS (06:48)
[2017-11-09] MEDS ORDERED: CALCTAB19 PO (06:48)
[2017-11-09] MEDS ORDERED: VITA500012 PO (06:48)
--- NOTE | 2017-11-09 07:37 | RADRPT ---
EXAM DATE/TIME: 11/09/2017 07:13 [facility] COMPARISON: No previous studies available for comparison. INDICATIONS : Left elbow bruising and pain after fall. MEDICAL HISTORY : Dementia. Hypertension. Gastroesophageal reflux disease. SURGICAL HISTORY : None. ENCOUNTER: Subsequent ACUITY: 1 day PAIN SCORE: Non-responsive. LOCATION: Left elbow FINDINGS: Two view examination of the left elbow demonstrates no soft tissue swelling, joint effusion, fracture or dislocation. Bony mineralization is normal. CONCLUSION: Unremarkable limited examination of the left elbow. Nayely Dubose MD on November 09, 2017 at 7:35 Board Certified Radiologist. This report was verified electronically.
--- NOTE | 2017-11-09 07:55 | MB ---
cc: Vic Beckett MD DATE: 11/08/2017 CONSULTING PHYSICIAN: Lalit Jalloh MD. HISTORY OF PRESENT ILLNESS: Triniyt is a 77-year-old female that has a history of significant dementia. She also has Parkinson's syndrome. She normally ambulates independently. Patient is unable to give a significant history because of her dementia. I spoke with the patient's over the phone. He describes a mechanical fall at home. She was unable to stand or ambulate after the fall. She presented to the emergency room where x-rays revealed a left femoral neck fracture. She is currently awake on the orthopedic floor. She is confused. She denies dizziness, syncope or loss of consciousness. PAST MEDICAL HISTORY: Illnesses: COPD, chronic renal failure, dementia, anxiety, hypertension, high cholesterol, Parkinson's disease. PAST SURGICAL HISTORY: Right knee arthroscopy, right total knee arthroplasty, cataract surgery, nasal septoplasty, tonsillectomy and adenoidectomy. MEDICATIONS: Include vitamin D, vitamin B, aspirin, tramadol, Pantoprazole, pravastatin, bupropion, carbidopa/levodopa, losartan, azithromycin. ALLERGIES: SULFA. FAMILY HISTORY: Noncontributory. SOCIAL HISTORY: The patient quit smoking around 1984. She is . She denies alcohol or drug use. REVIEW OF SYSTEMS: Unobtainable secondary to dementia. PHYSICAL EXAMINATION: GENERAL: The patient is a thin, 77-year-old female. She is awake, but is confused. She appears well-developed and well-nourished. VITAL SIGNS: Temperature 97.9, pulse 82, respirations 18, blood pressure 165/73, O2 saturations 95% on room air. HEENT: Head: The patient is normocephalic. Pupils are equal. NECK: Soft, nontender. The trachea is in the midline. ABDOMEN: Soft, nontender, nondistended. EXTREMITIES: Bilateral upper extremities reveals no obvious pain or deformity with shoulder, elbow or wrist motion. She has good cap refill in her fingers. She does have some bruising and swelling around her left arm and elbow. There is no crepitus with range of motion. Examination of the right arm reveals no obvious pain or deformity with shoulder, elbow and wrist motion. She has intact sensation in all fingers. She has good cap refill in all fingers. Skin is intact. Examination of the left leg reveals pain with any hip motion. She has no tenderness around her knee, tibia or ankle. Skin is intact. Dorsalis pedis pulses palpable. Sensation is intact. X-RAYS: X-rays of the left hip are reviewed. X-rays reveal a partially displaced left femoral neck fracture. LABORATORY DATA: The patient has a white blood cell count of 11.6, platelet count of 334. INR 1.1, BUN is 8 and creatinine is 0.9. IMPRESSION: 1. Dementia. 2. Parkinson's disorder. 3. Osteoporosis. 4. Left femoral neck fracture. PLAN: Treatment options were discussed with the patient, as well as her . At this point, I would recommend left hip hemiarthroplasty. The risks of surgery include bleeding, infection, injuries to arteries, nerves and blood vessels. Hip dislocation, leg length discrepancy, as well as medical complications including blood clot, stroke, heart attack and . All questions were answered. I will plan on surgery today. A mid-level provider in my office, nurse practitioner or PA, may see this patient on a follow-up basis and continue to implement the objective of this plan including: Starting or adjusting medications, injections of muscle, tendon, bursa or joints, cast application, orthotic or brace application, physical therapy, further radiographic studies including x-ray, MRI, CT, ultrasounds or bone scan, vascular studies, neurologic studies, or other specialist consultations, and proceeding with surgical management as appropriate. MD VAIBHAV Bowling/HARITHA , 07:35 AM , 07:54 AM
[2017-11-09] MEDS ORDERED: GENTAMICIN SULFATE 80 MG/2 ML VIAL ONE (08:52)
[2017-11-09] MEDS ORDERED: SODIUM CHLOR 0.9% 250 ML INJ 250 ML ONE (08:52)
[2017-11-09] MEDS ORDERED: VANCOMYCIN HCL 1000 MG VIAL ONE ×2 (08:52→09:30)
[2017-11-09] MEDS: PANTOPRAZOLE SOD 40 MG DELAYED RELEASE TAB PO SCH (09:00)
[2017-11-09] MEDS ORDERED: TRANEXAMIC ACID INJ 900 MG in SODIUM CHLORIDE 0.9% INJ 100 ML IV SCH (09:00)
[2017-11-09] MEDS ORDERED: ceFAZolin INJ 1,000 MG VIAL ONE (09:30)
--- NOTE | 2017-11-09 10:56 | PD.OP ---
cc: Vic Chang MD Operative Report Date of Surgery: Nov 09, 2017 Preoperative Diagnosis: Displaced left femoral neck fracture Postoperative Diagnosis: Procedure: Left hip hemiarthroplasty Anesthesia: General Surgeon: Vic Chang Gore Inserter(s): RAY Rogers PA-C The surgical procedure was assisted by my physician assistant property manager. My P.A. presence was necessary throughout this case for the manipulation and positioning of the surgical extremity. My P.A. was assisting me throughout the duration of this procedure. The skill set of a physician assistant property manager was medically necessary to complete this procedure. During the surgical case the sewing pattern layout technician was working at the back table and the physician assistant property manager was directly assisting me. Operation and Findings: PLAN OF ACTIVITY Weight bear as tolerated. IMPLANTS USED DePuy cemented Stark size [6] stem with size [43] bipolar head and [standard] neck. Plan of activity: Weight-bear as tolerated DETAILS OF PROCEDURE This patient was brought into the operating room and placed on the OR table. The patient was given anesthesia. The patient received IV antibiotics. The patient was then placed in lateral decubitus position. The hip and leg were prepped with alcohol, followed by Hibiclens and draped in a usual sterile fashion. Clean air was used for this procedure. Time out procedure was performed. The procedure began with a 5 inch incision over the posterolateral hip. The subcutaneous tissue was dissected with the Bovie. The iliotibial band were split in line with fibers. The Charnley retractor was placed. The piriformis and external rotators were released from the femur and tagged with a #1 Vicryl suture. The capsule is now incised and tagged with #1 Vicryl. The femoral neck fracture was now visualized. A corkscrew was now used to remove the femoral head. The femoral head was sized and measured. Soft tissue was now protected. The hip skid was placed underneath the femoral neck. An oscillating saw was used to make a femoral neck cut. At this point attention was turned to preparation of the proximal femur. A box osteotome was used to remove the lateral cortex of the femoral neck. The T- handle reamer was used to open the femoral canal. The canal was now reamed. Next , the canal was broached up to appropiate size. A lateralizing reamer was used to help lateralize the prosthesis. At this point a trial head and neck were placed. The hip was reduced. The patient was found to have excellent stability with good range of motion. Trial components were removed. Soft tissue and bone were thoroughly irrigated. The summit stem was now opened. Cement was mixed with vancomycin powder. Cement was pressurized into the femoral canal. The stem was now placed into the proximal femur. Care was taken to keep appropriate anteversion. excess cement was removed. After cement was set, the head and neck were now impacted onto the stem. The hip was again reduced. The hip was found to have good range of motion and good stability. Leg lengths were clinically equal. The wound was thoroughly irrigated. The capsule, piriformis and iliotibial band were closed with #1 Vicryl. Subcutaneous tissue was closed with 3-0 Vicryl. The skin was closed with jannet. A sterile dressing was applied with Prim[place]. The patient was placed into a knee immobilizer. The patient was awakened and transferred to the recovery room in stable condition. Needle and sponge counts were correct. Vic Chang MD Nov 09, 2017 10:56
[2017-11-09] MEDS ORDERED: ERGOCALCIFEROL (VIT D2) 50,000 UNIT CAP PO ONE (11:00)
[2017-11-09] MEDS ORDERED: Post-op Orders (for Pharmacy) XX ONE (11:00)
[2017-11-09] MEDS ORDERED: MORPHINE SULFATE 4 MG/ML INJ IV PUSH PRN (11:00)
--- NOTE | 2017-11-09 11:33 | PD.ORT.PN ---
Subjective Subjective Remarks Transferred to PACU in stable condition Objective Vitals Vital Signs Date Time Temp Pulse Resp B/P (MAP) Pulse Ox O2 Delivery O2 Flow Rate FiO2 11/09/17 08:00 97.9 86 19 179/88 (118) 95 11/09/17 04:00 97.9 82 18 165/73 (103) 95 11/09/17 00:00 98.4 91 16 174/85 (114) 95 11/08/17 20:30 99.1 78 18 176/92 (120) 95 11/08/17 20:25 89 20 178/82 (114) 98 11/08/17 15:15 98.5 70 17 193/92 (125) 95 Room Air 11/08/17 15:11 69 18 95 Room Air 11/08/17 14:46 70 20 193/92 (125) 96 I/O 11/08/17 11/08/17 11/08/17 11/09/17 11/09/17 11/09/17 07:00 15:00 23:00 07:00 15:00 23:00 Intake Total 0 ml Output Total 450 ml Balance -450 ml Intake Oral 0 ml Output Urine Total 450 ml # Bowel Movements 0 Result Diagram: 11/08/17 1530 11/08/17 1530 Other Results Laboratory Tests Test 11/08/17 15:30 Prothromb Time International Ratio 1.1 RATIO Prothrombin Time 10.7 SEC (9.8-11.6) Imaging Last 24 hours Impressions Femur X-Ray 11/08/17 1505 Signed Impressions: Service Date/Time: October 15:45 - CONCLUSION: 1. No acute fracture or dislocation. Blaise Saul MD Chest X-Ray 11/08/17 1505 Signed Impressions: Service Date/Time: October 15:42 - CONCLUSION: Old granulomatous disease. Nothing acute. Girish Miller MD Objective Remarks Right upper extremity: No pain with range of motion of the shoulder elbow or wrist. Neurovascular intact Right lower extremity: Full range of motion neurovascularly intact Left upper extremity: Pain to palpation of shoulder or wrist. She does have significant bruising and pain over the elbow. Distally she has intact sensation good capillary refills. Left lower extremity: Clean dry dressings intact. Knee immobilizer in place. Mild swelling. Intact sensation distally with good capillary refills. Assessment & Plan Assessment and Plan Left hip hemiarthroplasty Weightbearing as tolerated with posterior hip precautions Knee immobilizer when in bed Lovenox Incentive spirometry Case management for rehab placement Follow-up Dr. Beckett or [place] in 2 weeks Primo Day Jr. Nov 09, 2017 11:33
[2017-11-09] MEDS ORDERED: DO NOT ADM ANY ANTICOAGULANT DRUGS PRN (11:38)
--- NOTE | 2017-11-09 11:47 | HHI.PR ---
Subjective Remarks Pt seen in PACU post-operatively Vital signs are stable Objective Vitals Vital Signs Date Time Temp Pulse Resp B/P (MAP) Pulse Ox O2 Delivery O2 Flow Rate FiO2 11/09/17 08:00 97.9 86 19 179/88 (118) 95 11/09/17 04:00 97.9 82 18 165/73 (103) 95 11/09/17 00:00 98.4 91 16 174/85 (114) 95 11/08/17 20:30 99.1 78 18 176/92 (120) 95 11/08/17 20:25 89 20 178/82 (114) 98 11/08/17 15:15 98.5 70 17 193/92 (125) 95 Room Air 11/08/17 15:11 69 18 95 Room Air 11/08/17 14:46 70 20 193/92 (125) 96 Result Diagram: 11/08/17 1530 11/08/17 1530 Other Results Laboratory Tests Test 11/08/17 15:30 11/08/17 17:19 White Blood Count 11.6 TH/MM3 Red Blood Count 3.71 MIL/MM3 Hemoglobin 12.2 GM/DL Hematocrit 35.7 % Mean Corpuscular Volume 96.3 FL Mean Corpuscular Hemoglobin 32.9 PG Mean Corpuscular Hemoglobin Concent 34.2 % Red Cell Distribution Width 11.9 % Platelet Count 334 TH/MM3 Mean Platelet Volume 7.9 FL Neutrophils (%) (Auto) 86.0 % Lymphocytes (%) (Auto) 7.2 % Monocytes (%) (Auto) 6.2 % Eosinophils (%) (Auto) 0.3 % Basophils (%) (Auto) 0.3 % Neutrophils # (Auto) 9.9 TH/MM3 Lymphocytes # (Auto) 0.8 TH/MM3 Monocytes # (Auto) 0.7 TH/MM3 Eosinophils # (Auto) 0.0 TH/MM3 Basophils # (Auto) 0.0 TH/MM3 CBC Comment DIFF FINAL Differential Comment Prothrombin Time 10.7 SEC Prothromb Time International Ratio 1.1 RATIO Activated Partial Thromboplast Time 25.2 SEC Blood Urea Nitrogen 8 MG/DL Creatinine 0.90 MG/DL Random Glucose 90 MG/DL Total Protein 7.5 GM/DL Albumin 3.5 GM/DL Calcium Level 9.1 MG/DL Alkaline Phosphatase 71 U/L Aspartate Amino Transf (AST/SGOT) 24 U/L Alanine Aminotransferase (ALT/SGPT) 9 U/L Total Bilirubin 0.5 MG/DL Sodium Level 136 MEQ/L Potassium Level 4.3 MEQ/L Chloride Level 100 MEQ/L Carbon Dioxide Level 25.8 MEQ/L Anion Gap 10 MEQ/L Estimat Glomerular Filtration Rate 61 ML/MIN Total Creatine Kinase 88 U/L Troponin I LESS THAN 0.02 NG/ML Urine Color YELLOW Urine Turbidity CLEAR Urine pH 6.0 Urine Specific [place] 1.016 Urine Protein TRACE mg/dL Urine Glucose (UA) NEG mg/dL Urine Ketones 80 mg/dL Urine Occult Blood LARGE Urine Nitrite NEG Urine Bilirubin NEG Urine Urobilinogen LESS THAN 2.0 MG/DL Urine Leukocyte Esterase NEG Urine RBC /hpf Urine Hyaline Casts 3 /lpf Urine Mucus FEW /lpf Microscopic Urinalysis Comment CATH-CULT NOT IND Imaging Last Impressions Elbow X-Ray 11/09/17 0000 Signed Impressions: Service Date/Time: Thursday, November 09, 2017 07:13 - CONCLUSION: Unremarkable limited examination of the left elbow. Nayely Dubose MD Femur X-Ray 11/08/17 1505 Signed Impressions: Service Date/Time: October 15:45 - CONCLUSION: 1. No acute fracture or dislocation. Blaise Saul MD Chest X-Ray 11/08/17 1505 Signed Impressions: Service Date/Time: October 15:42 - CONCLUSION: Old granulomatous disease. Nothing acute. Girish Miller MD Pelvis CT 11/08/17 0000 Signed Impressions: Service Date/Time: October 16:24 - CONCLUSION: 1. Mildly angulated left femoral neck fracture. 2. Nondisplaced fractures of the left superior and inferior pubic rami. 3. Uncomplicated sigmoid diverticulosis. Nitish Mckeon MD Hip and Pelvis X-Ray 11/08/17 0000 Signed Impressions: Service Date/Time: October 15:46 - CONCLUSION: Subcapital fracture of the left hip. Girish Miller MD Head CT 11/08/17 0000 Signed Impressions: Service Date/Time: October 16:18 - CONCLUSION: 1. No evidence of acute infarct, hemorrhage, mass or edema. 2. Stable exam. Nitish Mckeon MD Hand X-Ray 11/08/17 0000 Signed Impressions: Service Date/Time: October 16:09 - CONCLUSION: 1. No evidence of acute fracture. 2. Severe bone demineralization. Nitish Mckeon MD Cervical Spine CT 11/08/17 0000 Signed Impressions: Service Date/Time: October 16:18 - CONCLUSION: 1. Degenerative disc disease with spondylosis. 2. Intact vertebral body alignment. 3. No evidence of acute fracture. Nitish Mckeon MD Objective Remarks General: NAD, resting comfortably Chest: CTA anteriorly Cardiac: Regular Abd: +BS, soft ND/NT Ext: No edema A/P Problem List: (1) Femoral neck fracture ICD Codes: S72.009A - Fracture of unspecified part of neck of unspecified femur , initial encounter for closed fracture Status: Acute Plan: Left hip fracture Pelvic fractures - Pt is a 77 y/o female who was brought in s/p fall at home - Imaging studies revealed mildly angulated left femoral neck fracture and nondisplaced fractures of the left superior and inferior pubic rami. - Ortho consulted - Pt s/p left hip hemiarthroplasty on 11/09/17 - Weightbearing as tolerated with posterior hip precautions - Knee immobilizer when in bed - PT daily - IS - Constipation precautions - DVT prophylaxis with Lovenox - Pt will likely need SNF placement at the end of this hospitalization for rehab. HTN - Continue home meds. - Likely elevated in relation to pain - Monitor Bronchitis - Pt was started on azithromycin by her primary care physician the day prior to admission - This was continued at admission. Dementia Anxiety Depression - Continue home meds. GERD - Continue Protonix Extrapyramidal disorder - Continue home meds. - Outpt f/u with neurology. (2) Pelvic fracture ICD Codes: S32.9XXA - Fracture of unspecified parts of lumbosacral spine and pelvis, initial encounter for closed fracture Status: Acute (3) Bronchitis ICD Codes: J40 - Bronchitis, not specified as acute or chronic Status: Acute (4) GERD (gastroesophageal reflux disease) ICD Codes: K21.9 - Gastro-esophageal reflux disease without esophagitis (5) Extrapyramidal disorder ICD Codes: G25.9 - Extrapyramidal and movement disorder, unspecified Status: Chronic (6) Major depression ICD Codes: F32.9 - Major depressive disorder, single episode, unspecified Status: Chronic (7) Anxiety ICD Codes: F41.9 - Anxiety disorder, unspecified Status: Chronic (8) Hypertension ICD Codes: I10 - Essential (primary) hypertension Status: Chronic (9) Dementia ICD Codes: F03.90 - Unspecified dementia without behavioral disturbance Status: Chronic Assessment and Plan Patient examined. Assessment and plan formulated with Za Lucero PA-C. I agree with the above. Problem Qualifiers (1) Femoral neck fracture: (2) Major depression: (3) Hypertension: Qualified Codes: I10 - Essential (primary) hypertension (4) Dementia: Za Lucero Nov 09, 2017 11:47 Lalit Jalloh MD Nov 09, 2017 12:20
[2017-11-09] MEDS ORDERED: LIDOCAINE HCL 1% PF 5 ML SYRINGE OTHER ONE (12:00)
[2017-11-09] MEDS ORDERED: PROPOFOL 200 MG/20 ML AMP IV ONE (12:00)
[2017-11-09] MEDS ORDERED: DEXAMETHASONE SOD PHOS 4 MG/ML VIAL IV ONE (12:00)
[2017-11-09] MEDS ORDERED: ONDANSETRON HCL 4 MG/2 ML VIAL IV ONE (12:00)
[2017-11-09] MEDS ORDERED: PHENYLEPH/NS 1000 MCG/10 ML SYR IV ONE (12:00)
[2017-11-09] MEDS ORDERED: ePHEDrine/NS 25 MG/5 ML SYRINGE IV ONE (12:00)
[2017-11-09] MEDS ORDERED: *morphine SULFATE 4 MG/ML PERIprocedure ONLY ONE (12:22)
--- NOTE | 2017-11-09 12:49 | RADRPT ---
EXAM DATE/TIME: 11/09/2017 13:15 [facility] COMPARISON: HIP LEFT (AP&LAT 2/3VWS) W AP PELVIS, November 08, 2017, 15:46. INDICATIONS : Post-op left hip. MEDICAL HISTORY : Parkinson's, dementia per nurse SURGICAL HISTORY : right knee preplacement. ENCOUNTER: Initial ACUITY: 2 days PAIN SCORE: 0/10 LOCATION: Left hip. 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 Prosthesis is well-sea zachariah. Alignment is anatomic. A fracture is not appreciated. CONCLUSION: Anatomic alignment. Adilson Friedman MD FACR Board Certified Radiologist. This report was verified electronically.
[2017-11-09] MEDS: ceFAZolin 2 GM PREMIX 50 ML IV SCH ×2 (17:30→22:00)
[2017-11-09] MEDS: AZITHROMYCIN INJ 500 MG in SODIUM CHLOR 0.9% 250 ML INJ 250 ML IV SCH (21:47)
[2017-11-10] VITALS (7 sets, daily range): BP systolic 120–169; BP diastolic 56–85; PULSE 76–93; RESP 17–18; TEMP 97.7–99.1; O2SAT 93–99
[2017-11-10] MEDS: ACETAMINOPHEN/HYDROcodone 325 MG/7.5 MG TAB PO PRN ×2 (02:19→11:24)
[2017-11-10] MEDS: ceFAZolin 2 GM PREMIX 50 ML IV SCH (04:59)
[2017-11-10 05:59] LABS: BASOPHIL % 0.2 % (0.0-2.0); EOSINOPHIL % 0.1 % (0.0-4.0); HEMATOCRIT 28.1 % (35.0-46.0); HEMOGLOBIN 9.7 GM/DL (11.6-15.3); LYMPH % 7.9 % (9.0-44.0); LYMPHOCYTE # 1.1 TH/MM3 (1.0-4.8); MEAN CORPUSCULAR HEMOGLOBIN 33.2 PG (27.0-34.0); MEAN CORPUSCULAR HGB CONC 34.6 % (32.0-36.0); MEAN PLATELET VOLUME 7.5 FL (7.0-11.0); MONOCYTE # 1.5 TH/MM3 (0-0.9); NEUT % 80.8 % (16.0-70.0); PLATELET COUNT 258 TH/MM3 (150-450); RED BLOOD COUNT 2.93 MIL/MM3 (4.00-5.30); RED CELL DISTRIBUTION WIDTH 11.9 % (11.6-17.2); WHITE BLOOD COUNT 13.5 TH/MM3 (4.0-11.0)
[2017-11-10 06:12] LABS: BICARBONATE 26.8 MEQ/L (21.0-32.0); CALCIUM 8.6 MG/DL (8.5-10.1); CREATININE 0.86 MG/DL (0.50-1.00); MAGNESIUM 1.9 MG/DL (1.5-2.5)
--- NOTE | 2017-11-10 09:15 | EKG ---
Date Performed: 11/08/2017 Time Performed: 17:29:14 PTAGE: 77 years EKG: Sinus rhythm POSSIBLE LEFT ATRIAL ENLARGEMENT NONSPECIFIC ST & T-WAVE ABNORMALITY BORDERLINE ECG PREVIOUS TRACING : 01/12/2016 10.55 DOCTOR: Sana Camara Interpretating Date/Time 11/10/2017 09:10:47
--- NOTE | 2017-11-10 09:56 | HHI.PR ---
Subjective Remarks Pt is awake and confuse, oriented only to self Nurse reports that pt has not been eating or drinking much or anything Objective Vitals Vital Signs Date Time Temp Pulse Resp B/P (MAP) Pulse Ox O2 Delivery O2 Flow Rate FiO2 11/10/17 08:00 99.1 78 18 167/75 (105) 99 11/10/17 04:00 98.0 76 18 150/66 (94) 99 11/10/17 00:02 98.3 76 18 156/72 (100) 98 11/09/17 23:01 97 Nasal Cannula 2.00 11/09/17 20:00 97.0 80 18 132/64 (86) 98 11/09/17 17:24 97 Nasal Cannula 2.00 11/09/17 17:21 11/09/17 16:00 98.4 74 18 147/65 (92) 97 11/09/17 15:34 11/09/17 12:45 98.4 83 18 150/73 (98) 97 Nasal Cannula 2 11/09/17 12:30 83 18 160/69 (99) 97 Nasal Cannula 2 11/09/17 12:15 78 16 176/77 (110) 96 Nasal Cannula 2 11/09/17 12:00 79 16 164/79 (107) 96 Nasal Cannula 2 11/09/17 11:45 69 15 160/71 (100) 97 Nasal Cannula 2 11/09/17 11:30 98.0 77 15 161/74 (103) 99 Nasal Cannula 2 Result Diagram: 11/10/17 0519 11/10/17 0524 Other Results Laboratory Tests Test 11/08/17 15:30 11/08/17 17:19 11/09/17 17:22 11/10/17 05:19 White Blood Count 11.6 TH/MM3 13.5 TH/MM3 Red Blood Count 3.71 MIL/MM3 2.93 MIL/MM3 Hemoglobin 12.2 GM/DL 9.7 GM/DL Hematocrit 35.7 % 28.1 % Mean Corpuscular Volume 96.3 FL 96.0 FL Mean Corpuscular Hemoglobin 32.9 PG 33.2 PG Mean Corpuscular Hemoglobin Concent 34.2 % 34.6 % Red Cell Distribution Width 11.9 % 11.9 % Platelet Count 334 TH/MM3 258 TH/MM3 Mean Platelet Volume 7.9 FL 7.5 FL Neutrophils (%) (Auto) 86.0 % 80.8 % Lymphocytes (%) (Auto) 7.2 % 7.9 % Monocytes (%) (Auto) 6.2 % 11.0 % Eosinophils (%) (Auto) 0.3 % 0.1 % Basophils (%) (Auto) 0.3 % 0.2 % Neutrophils # (Auto) 9.9 TH/MM3 11.0 TH/MM3 Lymphocytes # (Auto) 0.8 TH/MM3 1.1 TH/MM3 Monocytes # (Auto) 0.7 TH/MM3 1.5 TH/MM3 Eosinophils # (Auto) 0.0 TH/MM3 0.0 TH/MM3 Basophils # (Auto) 0.0 TH/MM3 0.0 TH/MM3 CBC Comment DIFF FINAL DIFF FINAL Differential Comment Prothrombin Time 10.7 SEC Prothromb Time International Ratio 1.1 RATIO Activated Partial Thromboplast Time 25.2 SEC Blood Urea Nitrogen 8 MG/DL Creatinine 0.90 MG/DL Random Glucose 90 MG/DL Total Protein 7.5 GM/DL Albumin 3.5 GM/DL Calcium Level 9.1 MG/DL Alkaline Phosphatase 71 U/L Aspartate Amino Transf (AST/SGOT) 24 U/L Alanine Aminotransferase (ALT/SGPT) 9 U/L Total Bilirubin 0.5 MG/DL Sodium Level 136 MEQ/L Potassium Level 4.3 MEQ/L Chloride Level 100 MEQ/L Carbon Dioxide Level 25.8 MEQ/L Anion Gap 10 MEQ/L Estimat Glomerular Filtration Rate 61 ML/MIN Total Creatine Kinase 88 U/L Troponin I LESS THAN 0.02 NG/ML Urine Color YELLOW Urine Turbidity CLEAR Urine pH 6.0 Urine Specific [place] 1.016 Urine Protein TRACE mg/dL Urine Glucose (UA) NEG mg/dL Urine Ketones 80 mg/dL Urine Occult Blood LARGE Urine Nitrite NEG Urine Bilirubin NEG Urine Urobilinogen LESS THAN 2.0 MG/DL Urine Leukocyte Esterase NEG Urine RBC /hpf Urine Hyaline Casts 3 /lpf Urine Mucus FEW /lpf Microscopic Urinalysis Comment CATH-CULT NOT IND 25-Hydroxy Vitamin D Total 39.0 ng/ML Test 11/10/17 05:24 Blood Urea Nitrogen 14 MG/DL Creatinine 0.86 MG/DL Random Glucose 125 MG/DL Calcium Level 8.6 MG/DL Magnesium Level 1.9 MG/DL Sodium Level 136 MEQ/L Potassium Level 4.1 MEQ/L Chloride Level 102 MEQ/L Carbon Dioxide Level 26.8 MEQ/L Anion Gap 7 MEQ/L Estimat Glomerular Filtration Rate 64 ML/MIN Imaging Last Impressions Elbow X-Ray 11/09/17 0000 Signed Impressions: Service Date/Time: Thursday, November 09, 2017 07:13 - CONCLUSION: Unremarkable limited examination of the left elbow. Nayely Dubose MD Femur X-Ray 11/08/17 1505 Signed Impressions: Service Date/Time: October 15:45 - CONCLUSION: 1. No acute fracture or dislocation. Blaise Saul MD Chest X-Ray 11/08/17 1505 Signed Impressions: Service Date/Time: October 15:42 - CONCLUSION: Old granulomatous disease. Nothing acute. Girish Miller MD Pelvis CT 11/08/17 0000 Signed Impressions: Service Date/Time: October 16:24 - CONCLUSION: 1. Mildly angulated left femoral neck fracture. 2. Nondisplaced fractures of the left superior and inferior pubic rami. 3. Uncomplicated sigmoid diverticulosis. Nitish Mckeon MD Hip and Pelvis X-Ray 11/08/17 0000 Signed Impressions: Service Date/Time: October 15:46 - CONCLUSION: Subcapital fracture of the left hip. Girish Miller MD Head CT 11/08/17 0000 Signed Impressions: Service Date/Time: October 16:18 - CONCLUSION: 1. No evidence of acute infarct, hemorrhage, mass or edema. 2. Stable exam. Nitish Mckeon MD Hand X-Ray 11/08/17 0000 Signed Impressions: Service Date/Time: October 16:09 - CONCLUSION: 1. No evidence of acute fracture. 2. Severe bone demineralization. Nitish Mckeon MD Cervical Spine CT 11/08/17 0000 Signed Impressions: Service Date/Time: October 16:18 - CONCLUSION: 1. Degenerative disc disease with spondylosis. 2. Intact vertebral body alignment. 3. No evidence of acute fracture. Nitish Mckeon MD Objective Remarks General: NAD, resting comfortably, easily arousable, oriented to self only Chest: CTA anteriorly Cardiac: Regular Abd: +BS, soft ND/NT Ext: No edema A/P Problem List: (1) Femoral neck fracture ICD Codes: S72.009A - Fracture of unspecified part of neck of unspecified femur , initial encounter for closed fracture Status: Acute Plan: Left hip fracture Pelvic fractures - Pt is a 77 y/o female who was brought in s/p fall at home - Imaging studies revealed mildly angulated left femoral neck fracture and nondisplaced fractures of the left superior and inferior pubic rami. - Ortho following - Pt s/p left hip hemiarthroplasty on 11/09/17 - Weightbearing as tolerated with posterior hip precautions - Knee immobilizer when in bed - PT daily - IS - Constipation precautions - DVT prophylaxis with Lovenox - Pt will likely need SNF placement at the end of this hospitalization for rehab. HTN - Continue home meds. - Likely elevated in relation to pain and agitation - Clonidine PRN - Monitor Bronchitis - Pt was started on azithromycin by her primary care physician the day prior to admission - This was continued at admission. Dementia Anxiety Depression - Continue home meds. GERD - Continue Protonix Extrapyramidal disorder - Continue home meds. - Outpt f/u with neurology. (2) Pelvic fracture ICD Codes: S32.9XXA - Fracture of unspecified parts of lumbosacral spine and pelvis, initial encounter for closed fracture Status: Acute (3) Bronchitis ICD Codes: J40 - Bronchitis, not specified as acute or chronic Status: Acute (4) GERD (gastroesophageal reflux disease) ICD Codes: K21.9 - Gastro-esophageal reflux disease without esophagitis (5) Extrapyramidal disorder ICD Codes: G25.9 - Extrapyramidal and movement disorder, unspecified Status: Chronic (6) Major depression ICD Codes: F32.9 - Major depressive disorder, single episode, unspecified Status: Chronic (7) Anxiety ICD Codes: F41.9 - Anxiety disorder, unspecified Status: Chronic (8) Hypertension ICD Codes: I10 - Essential (primary) hypertension Status: Chronic (9) Dementia ICD Codes: F03.90 - Unspecified dementia without behavioral disturbance Status: Chronic Assessment and Plan Patient examined. Assessment and plan formulated with Za Lucero PA-C. I agree with the above. Problem Qualifiers (1) Femoral neck fracture: (2) Major depression: (3) Hypertension: Qualified Codes: I10 - Essential (primary) hypertension (4) Dementia: Za Lucero Nov 10, 2017 09:56 Lalit Jalloh MD Nov 10, 2017 11:40
[2017-11-10] MEDS: PANTOPRAZOLE SOD 40 MG DELAYED RELEASE TAB PO SCH (10:30)
[2017-11-10] MEDS: CHOLECALCIFEROL (VIT D3) 5000 UNIT CAP PO SCH (10:41)
[2017-11-10] MEDS: ENOXAPARIN SODIUM 30 MG/0.3 ML SYRINGE SQ SCH (11:00)
[2017-11-10] MEDS ORDERED: SODIUM CHLORID 0.9% 500 ML INJ 500 ML IV SCH (16:15)
[2017-11-10] MEDS: MORPHINE SULFATE 2 MG/ML SYRINGE IV PUSH PRN (16:42)
--- NOTE | 2017-11-10 20:14 | PD.ORT.PN ---
Subjective Subjective Remarks No chest pain or shortness of breath. No new issues. Pain controlled Objective Vitals Vital Signs Date Time Temp Pulse Resp B/P (MAP) Pulse Ox O2 Delivery O2 Flow Rate FiO2 11/10/17 16:00 97.8 83 17 162/75 (104) 98 11/10/17 14:10 99 Nasal Cannula 2.00 11/10/17 12:00 97.7 80 18 120/56 (77) 96 11/10/17 09:58 16 11/10/17 08:00 99.1 78 18 167/75 (105) 99 11/10/17 04:00 98.0 76 18 150/66 (94) 99 11/10/17 00:02 98.3 76 18 156/72 (100) 98 11/09/17 23:01 97 Nasal Cannula 2.00 I/O 11/09/17 11/09/17 11/09/17 11/10/17 11/10/17 11/10/17 07:00 15:00 23:00 07:00 15:00 23:00 Intake Total 0 ml 700 ml 50 ml 120 ml Output Total 450 ml 225 ml 50 ml 450 ml 50 ml Balance -450 ml 475 ml 0 ml -330 ml -50 ml Intake Oral 0 ml 0 ml 120 ml IV Total 50 ml Other 700 ml Output Urine Total 450 ml 125 ml 50 ml 450 ml 50 ml Estimated Blood Loss 100 ml # Bowel Movements 0 0 Result Diagram: 11/10/17 0519 11/10/17 0524 Imaging Last 24 hours Impressions Femur X-Ray 11/08/17 1505 Signed Impressions: Service Date/Time: October 15:45 - CONCLUSION: 1. No acute fracture or dislocation. Blaise Saul MD Chest X-Ray 11/08/17 1505 Signed Impressions: Service Date/Time: October 15:42 - CONCLUSION: Old granulomatous disease. Nothing acute. Girish Miller MD Objective Remarks LLE: nvi, dressing CDI, SILT distally Assessment & Plan Assessment and Plan Left hip hemiarthroplasty POD 1 Weightbearing as tolerated with posterior hip precautions Knee immobilizer when in bed Lovenox Incentive spirometry Case management for rehab placement Follow-up Dr. Beckett or [place] in 2 weeks García Cisse Jr., MD Nov 10, 2017 20:14
[2017-11-10] MEDS: AZITHROMYCIN INJ 500 MG in SODIUM CHLOR 0.9% 250 ML INJ 250 ML IV SCH (23:07)
[2017-11-11 00:04] VITALS: BP 137/74; PULSE 89; RESP 17; TEMP 98.9; O2SAT 98
[2017-11-11 04:24] VITALS: BP 144/65; PULSE 85; RESP 18; TEMP 98.7; O2SAT 97
[2017-11-11 04:56] LABS: AUTOMATED NEUTROPHIL # 10.6 TH/MM3 (1.8-7.7); BASOPHIL % 0.3 % (0.0-2.0); EOSINOPHIL # 0.1 TH/MM3 (0-0.4); EOSINOPHIL % 0.5 % (0.0-4.0); HEMATOCRIT 26.8 % (35.0-46.0); HEMOGLOBIN 9.3 GM/DL (11.6-15.3); LYMPH % 11.1 % (9.0-44.0); LYMPHOCYTE # 1.5 TH/MM3 (1.0-4.8); MEAN CELL VOLUME 97.1 FL (80.0-100.0); MEAN CORPUSCULAR HEMOGLOBIN 33.7 PG (27.0-34.0); MEAN CORPUSCULAR HGB CONC 34.7 % (32.0-36.0); MEAN PLATELET VOLUME 7.4 FL (7.0-11.0); MONO % 8.6 % (0.0-8.0); MONOCYTE # 1.1 TH/MM3 (0-0.9); NEUT % 79.5 % (16.0-70.0); PLATELET COUNT 263 TH/MM3 (150-450); RED BLOOD COUNT 2.76 MIL/MM3 (4.00-5.30); RED CELL DISTRIBUTION WIDTH 12.2 % (11.6-17.2); WHITE BLOOD COUNT 13.3 TH/MM3 (4.0-11.0)
[2017-11-11 05:17] LABS: BICARBONATE 24.8 MEQ/L (21.0-32.0); CALCIUM 8.2 MG/DL (8.5-10.1); CREATININE 0.76 MG/DL (0.50-1.00)
[2017-11-11 08:00] VITALS: BP 169/74; PULSE 84; RESP 18; TEMP 98.9; O2SAT 95
--- NOTE | 2017-11-11 08:26 | HHI.PR ---
Subjective Remarks not eating demented Objective Vitals opens eyes. verbal demented heart reg lung cta abd s/nt/bs ext no edema yeh. 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 Vital Signs Date Time Temp Pulse Resp B/P (MAP) Pulse Ox O2 Delivery O2 Flow Rate FiO2 11/11/17 04:24 98.7 85 18 144/65 (91) 97 11/11/17 00:04 98.9 89 17 137/74 (95) 98 11/10/17 21:32 Nasal Cannula 2.00 11/10/17 21:00 98.1 93 17 169/85 (113) 93 11/10/17 16:00 97.8 83 17 162/75 (104) 98 11/10/17 14:10 99 Nasal Cannula 2.00 11/10/17 12:00 97.7 80 18 120/56 (77) 96 11/10/17 09:58 16 Result Diagram: 11/11/17 0437 11/11/17 0437 Imaging Last Impressions Elbow X-Ray 11/09/17 0000 Signed Impressions: Service Date/Time: Thursday, November 09, 2017 07:13 - CONCLUSION: Unremarkable limited examination of the left elbow. Nayely Dubose MD Femur X-Ray 11/08/17 1505 Signed Impressions: Service Date/Time: October 15:45 - CONCLUSION: 1. No acute fracture or dislocation. Blaise Saul MD Chest X-Ray 11/08/17 1505 Signed Impressions: Service Date/Time: October 15:42 - CONCLUSION: Old granulomatous disease. Nothing acute. Girish Miller MD Pelvis CT 11/08/17 0000 Signed Impressions: Service Date/Time: October 16:24 - CONCLUSION: 1. Mildly angulated left femoral neck fracture. 2. Nondisplaced fractures of the left superior and inferior pubic rami. 3. Uncomplicated sigmoid diverticulosis. Nitish Mckeon MD Hip and Pelvis X-Ray 11/08/17 0000 Signed Impressions: Service Date/Time: October 15:46 - CONCLUSION: Subcapital fracture of the left hip. Girish Miller MD Head CT 11/08/17 0000 Signed Impressions: Service Date/Time: October 16:18 - CONCLUSION: 1. No evidence of acute infarct, hemorrhage, mass or edema. 2. Stable exam. Nitish Mckeon MD Hand X-Ray 11/08/17 0000 Signed Impressions: Service Date/Time: October 16:09 - CONCLUSION: 1. No evidence of acute fracture. 2. Severe bone demineralization. Nitish Mckeon MD Cervical Spine CT 11/08/17 0000 Signed Impressions: Service Date/Time: October 16:18 - CONCLUSION: 1. Degenerative disc disease with spondylosis. 2. Intact vertebral body alignment. 3. No evidence of acute fracture. Nitish Mckeon MD A/P Problem List: (1) Femoral neck fracture ICD Codes: S72.009A - Fracture of unspecified part of neck of unspecified femur , initial encounter for closed fracture Status: Acute Plan: Left hip fracture Pelvic fractures - Pt is a 77 y/o female who was brought in s/p fall at home - Imaging studies revealed mildly angulated left femoral neck fracture and nondisplaced fractures of the left superior and inferior pubic rami. - Ortho following - Pt s/p left hip hemiarthroplasty on 11/09/17 - Weightbearing as tolerated with posterior hip precautions - Knee immobilizer when in bed - PT daily - IS - Constipation precautions - DVT prophylaxis with Lovenox - Pt will likely need SNF placement at the end of this hospitalization for rehab. Pt not eating. nursing will try to get to feed her...but we will need to discuss feeding options vs hospice if she won't eat. HTN - Continue home meds. - Likely elevated in relation to pain and agitation - Clonidine PRN - Monitor Bronchitis - Pt was started on azithromycin by her primary care physician the day prior to admission - This was continued at admission. Dementia Anxiety Depression - Continue home meds. GERD - Continue Protonix Extrapyramidal disorder - Continue home meds. - Outpt f/u with neurology. (2) Pelvic fracture ICD Codes: S32.9XXA - Fracture of unspecified parts of lumbosacral spine and pelvis, initial encounter for closed fracture Status: Acute (3) Bronchitis ICD Codes: J40 - Bronchitis, not specified as acute or chronic Status: Acute (4) GERD (gastroesophageal reflux disease) ICD Codes: K21.9 - Gastro-esophageal reflux disease without esophagitis (5) Extrapyramidal disorder ICD Codes: G25.9 - Extrapyramidal and movement disorder, unspecified Status: Chronic (6) Major depression ICD Codes: F32.9 - Major depressive disorder, single episode, unspecified Status: Chronic (7) Anxiety ICD Codes: F41.9 - Anxiety disorder, unspecified Status: Chronic (8) Hypertension ICD Codes: I10 - Essential (primary) hypertension Status: Chronic (9) Dementia ICD Codes: F03.90 - Unspecified dementia without behavioral disturbance Status: Chronic Problem Qualifiers (1) Femoral neck fracture: (2) Major depression: (3) Hypertension: Qualified Codes: I10 - Essential (primary) hypertension (4) Dementia: Lalit Jalloh MD Nov 11, 2017 08:26
[2017-11-11] MEDS: PANTOPRAZOLE SOD 40 MG DELAYED RELEASE TAB PO SCH (09:00)
[2017-11-11] MEDS: CHOLECALCIFEROL (VIT D3) 5000 UNIT CAP PO SCH (09:00)
[2017-11-11] MEDS: ENOXAPARIN SODIUM 30 MG/0.3 ML SYRINGE SQ SCH (11:24)
[2017-11-11 12:00] VITALS: BP 163/69; PULSE 83; RESP 18; TEMP 97.3; O2SAT 95
--- NOTE | 2017-11-11 14:03 | PD.ORT.PN ---
Subjective Subjective Remarks No chest pain or shortness of breath. No new issues. Pain controlled Objective Vitals Vital Signs Date Time Temp Pulse Resp B/P (MAP) Pulse Ox O2 Delivery O2 Flow Rate FiO2 11/11/17 12:00 97.3 83 18 163/69 (100) 95 11/11/17 08:00 98.9 84 18 169/74 (105) 95 11/11/17 04:24 98.7 85 18 144/65 (91) 97 11/11/17 00:04 98.9 89 17 137/74 (95) 98 11/10/17 21:32 Nasal Cannula 2.00 11/10/17 21:00 98.1 93 17 169/85 (113) 93 11/10/17 16:00 97.8 83 17 162/75 (104) 98 11/10/17 14:10 99 Nasal Cannula 2.00 I/O 11/10/17 11/10/17 11/10/17 11/11/17 11/11/17 11/11/17 07:00 15:00 23:00 07:00 15:00 23:00 Intake Total 120 ml 360 ml Output Total 450 ml 50 ml 250 ml Balance -330 ml -50 ml 110 ml Intake Oral 120 ml 360 ml Output Urine Total 450 ml 50 ml 250 ml # Bowel Movements 0 0 Result Diagram: 11/11/17 0437 11/11/17 0437 Imaging Last 24 hours Impressions Femur X-Ray 11/08/17 1505 Signed Impressions: Service Date/Time: October 15:45 - CONCLUSION: 1. No acute fracture or dislocation. Blaise Saul MD Chest X-Ray 11/08/17 1505 Signed Impressions: Service Date/Time: October 15:42 - CONCLUSION: Old granulomatous disease. Nothing acute. Girish Miller MD Objective Remarks LLE: nvi, dressing CDI, SILT distally Assessment & Plan Assessment and Plan Left hip hemiarthroplasty POD 2 No issues Weightbearing as tolerated with posterior hip precautions Knee immobilizer when in bed Lovenox Incentive spirometry Case management for rehab placement Follow-up Dr. Beckett or [place] in 2 weeks García Cisse Jr., MD Nov 11, 2017 14:02
[2017-11-11 16:00] VITALS: BP 149/67; PULSE 88; RESP 18; TEMP 97.8; O2SAT 97
[2017-11-11 19:00] VITALS: BP 176/74; PULSE 80; RESP 16; TEMP 97.1; O2SAT 96
[2017-11-11] MEDS: cloNIDine HCL 0.1 MG TAB PO PRN (20:06)
[2017-11-11] MEDS: AZITHROMYCIN INJ 500 MG in SODIUM CHLOR 0.9% 250 ML INJ 250 ML IV SCH (20:07)
[2017-11-12] VITALS (8 sets, daily range): BP systolic 123–175; BP diastolic 60–77; PULSE 73–88; RESP 16–18; TEMP 97.2–99; O2SAT 94–96
[2017-11-12] MEDS: SODIUM CHLOR 0.9% 1000 ML INJ 1,000 ML IV SCH ×3 (03:45→19:51)
--- NOTE | 2017-11-12 07:57 | PD.ORT.PN ---
Subjective Subjective Remarks POD 3 s/p left hip hemiarthroplasty doing well. pain controlled. confused. Objective Vitals Vital Signs Date Time Temp Pulse Resp B/P (MAP) Pulse Ox O2 Delivery O2 Flow Rate FiO2 11/12/17 04:00 97.8 79 17 153/72 (99) 96 11/12/17 00:00 99.0 88 17 149/70 (96) 94 11/11/17 19:00 97.1 80 16 176/74 (108) 96 11/11/17 18:19 2.00 11/11/17 16:00 97.8 88 18 149/67 (94) 97 11/11/17 12:00 97.3 83 18 163/69 (100) 95 11/11/17 08:00 98.9 84 18 169/74 (105) 95 I/O 11/11/17 11/11/17 11/11/17 11/12/17 11/12/17 11/12/17 07:00 15:00 23:00 07:00 15:00 23:00 Intake Total 360 ml 120 ml 20 ml Output Total 250 ml 250 ml 100 ml Balance 110 ml -130 ml -80 ml Intake Oral 360 ml 120 ml 20 ml Output Urine Total 250 ml 250 ml 100 ml # Bowel Movements 0 Result Diagram: 11/11/17 0437 11/11/17 0437 Imaging Last 24 hours Impressions Femur X-Ray 11/08/17 1505 Signed Impressions: Service Date/Time: October 15:45 - CONCLUSION: 1. No acute fracture or dislocation. Blaise Saul MD Chest X-Ray 11/08/17 1505 Signed Impressions: Service Date/Time: October 15:42 - CONCLUSION: Old granulomatous disease. Nothing acute. Girish Miller MD Objective Remarks LLE: nvi, dressing CDI, SILT distally Assessment & Plan Assessment and Plan 1) Left hip hemiarthroplasty POD 3 No issues Weightbearing as tolerated with posterior hip precautions Knee immobilizer when in bed Lovenox Incentive spirometry Case management for rehab placement Follow-up Dr. Beckett or [place] in 2 weeks Raymond Rubin/Pit Recorder PA Nov 12, 2017 07:57
[2017-11-12] MEDS: cloNIDine HCL 0.1 MG TAB PO PRN (08:47)
[2017-11-12] MEDS: CHOLECALCIFEROL (VIT D3) 5000 UNIT CAP PO SCH (08:47)
[2017-11-12] MEDS: ENOXAPARIN SODIUM 30 MG/0.3 ML SYRINGE SQ SCH (08:47)
[2017-11-12] MEDS: PANTOPRAZOLE SOD 40 MG DELAYED RELEASE TAB PO SCH (08:47)
[2017-11-12] MEDS ORDERED: OMEG1CAP50 PO (10:44)
[2017-11-12] MEDS ORDERED: VORTIOXETINE 20 MG PO SCH (12:00)
[2017-11-12] MEDS: MEMANTINE HCL 10 MG TAB PO SCH (12:50)
[2017-11-12] MEDS: CARBIDOPA/LEVODOPA 25 MG/100 MG TAB PO SCH ×2 (12:50→19:51)
--- NOTE | 2017-11-12 14:16 | PD.CONS ---
Consult Service Palliative Care Consult Requested By Dr. Agrawal. Primary Care Physician Joaquín Madison MD Reason for Consultation a. To assist with evaluation and management of symptoms including: debility , pain, poor appetite. b. To assist medical decision maker(s) with: better understanding of current medical conditions; weighing benefits/burdens of medical treatment options; making medical treatment decisions. . HPI History of Present Illness Mrs. Feliz is a 77 y/o female with a medical history significant for dementia, extrapyramidal disorder/Parkinsonian like syndrome, GERD, osteoarthritis and vertigo. Patient presented to the emergency room on 11/08/17 via EMS for evaluation of left hip pain secondary to mechanical fall at home. Hip and pelvis x-ray revealed subcapital fracture of the left hip. Head CT negative for acute process. Cervical spine CT revealing degenerative disc disease with spondylosis but no evidence of acute fracture. Chest x-ray revealing old granulomatous disease but negative for acute process. Laboratory workup revealing WBC 11.6, Hgb 12.2, sodium 136, BUN/creatinine 8/0.90. UA negative for infection. Patient was admitted for further management. Orthopedic surgeon Dr. Bustos consulted on 11/09. Patient underwent left hemiarthroplasty without any complications. Patient with reported decline and poor oral intake, concerns of patient's nutritional status and overall debility in the setting of dementia. Palliative care has been consulted for clarifications of goals of treatment. Patient seen and medical floor. She was resting in bed in no acute distress. Opening eyes to verbal stimuli, following commands. Verbal, confused. She was able to tell me her name, unable to elaborate on why she is currently hospitalized. Patient afebrile, stable hemodynamically. Currently tolerating room air with oxygen saturation in the high 90s. No shortness of breath reported. Facial grimacing noted when patient was on the sitting position in bed. Holding to her left hip. Patient's Ed Feliz at bedside. In this first visit, reviewed the role of palliative care in advanced illness in regards to symptom management as well as support surrounding goals of care and advance care planning. receptive to my visit. Obtained past medical history and psychosocial history. Reviewed events leading to this hospitalization, clinical course and current medical management. tells me that patient was diagnosed with dementia approximately 6 years ago, progressive cognitive and physical decline since. Patient requiring assistance with most ADLs prior to this acute event. Progressively forgetful/confused. reports that patient has been having issues with ambulation for the past 2-3 months, being followed by neurology. She was recently diagnosed with extrapyramidal disorder/parkinsonian-like syndrome for which she was placed on Sinemet about a month ago. Reviewed dementia progressive/terminal illness. Patient appears in the severe dementia stage. Patient's is patient's primary caregiver at home. Goal of treatment at this time is attempts rehabilitation at [facility] facility. voicing concerns of patient's ability to rehabilitate given severe dementia and surgery. Reviewed concerns of patient's limited oral intake within the past few days and her overall debilitated state. Discussed risks, benefits and limitations of artificial nutrition in dementia patients. Patient declining any NG/PEG tubes or invasive interventions or procedures. electing no code, DNR/DNI. Hospice philosophy and benefits introduced. Reviewed the role of hospice should patient's clinical condition worsen, inability to tolerate or participate in physical therapy or increased symptom burden/pain. receptive to this. . Function/Cognitive Trajectory Patient residing with in private home. Patient with severe dementia, requiring assistance with all ADLs. Ambulating to and from bathroom, intermittently using walker. Progressive cognitive decline secondary to dementia. . Review of Systems ROS Limitations: Altered Mental Status, Poor Historian Constitutional: COMPLAINS OF: Dizziness, Change in appetite, Pain, Generalized weakness, DENIES: Fever, Night Sweats Endocrine: DENIES: Heat/cold intolerance Eyes: DENIES: Eye inflammation, Eye pain Ears, nose, mouth, throat: DENIES: Hearing loss, Nasal discharge, Oral lesions , Hoarseness, Running Nose, Epistaxis Respiratory: DENIES: Cough, Shortness of breath Cardiovascular: DENIES: Chest pain, Dyspnea on Exertion, Lower Extremity Edema Gastrointestinal: DENIES: Bloody stools, Diarrhea, Nausea, Vomiting, Difficulty Swallowing Musculoskeletal: COMPLAINS OF: Back pain, DENIES: Neck pain Integumentary: DENIES: Pruritus, Rash Hematologic/Lymphatics: DENIES: Bruising Immunologic/Allergic: DENIES: Eczema Neurologic: COMPLAINS OF: Abnormal gait, Poor Balance, DENIES: Localized weakness, Seizures Psychiatric: COMPLAINS OF: Anxiety, Confusion, Depression, DENIES: Hallucinations, Agitation Past Family Social History Coded Allergies: Sulfa (Sulfonamide Antibiotics) (Unverified Allergy, Mild, 11/08/17) Past Medical History Dementia Extrapyramidal disorder/Parkinson's syndrome Cervical facet syndrome COPD CKD stage III Osteoarthritis Hypertension Hyperlipidemia Anxiety Depression . Past Surgical History Right knee arthroscopy x 2 Right knee replacement in 2014 Bilateral cataract surgery Nasal septoplasty . Reported Medications Calcium 600+D 200 (Calcium Carbonate-Vitamin D) 600-200 Mg-Unit Tab 1 Tab PO BID Ergocalciferol 50,000 Unit Cap 50,000 Units PO Q7D Xarelto (Rivaroxaban) 10 Mg Tab 10 Mg PO DAILY Ash (Hydrocodone-Acetaminophen) 5 Mg-325 Mg Tab 1 Tab PO Q4H PRN Sacaton 3 500 500 mg ([place]aton-3 Fatty Acids) 500 Mg (200 Mg-300 Mg)-1,000 Mg Cap 500 Mg PO DAILY Vitamin D3 (Cholecalciferol) 400 Unit Cap 1,600 Units PO DAILY Vitamin B-12 (Cyanocobalamin) 1,000 Mcg Tab 2,000 Mcg PO DAILY Mapap (Acetaminophen) 325 Mg Tab 650 Mg PO Q4-6H PRN Coq10 (Coenzyme Q10 (Ubidecarenone)) 50 Mg Cap Coq-10 (Coenzyme Q10 (Ubidecarenone)) 50 Mg Cap 200 Mg PO DAILY Aspirin 81 Mg Chew 81 Mg CHEW DAILY [Calcium] 900 Mg PO DAILY Multiple Vitamin 1 Tab 1 Tab PO DAILY Ofloxacin Opth Drops 0.3 % Drops 1 Drop EACH EYE Q6HR Tramadol (Tramadol HCl) 50 Mg Tab 50 Mg PO Q8H PRN Pantoprazole (Pantoprazole Sodium) 40 Mg Tab 40 Mg PO DAILY Pravastatin 40 Mg Tab 40 Mg PO BID Bupropion HCl ER 24 HR (Bupropion HCl) 150 Mg Tab 150 Mg DAILY Deplin (c-Hjvtpzvkjuku-Jbfcw) 15 Mg Cap Trintellix (Vortioxetine) 20 Mg Tab 20 Mg PO DAILY Carbidopa-Levodopa 25-100 Mg Tab 1 Tab PO Q8HR Clonazepam 0.5 Mg Tab 0.5 Mg PO DAILY Donepezil 10 Mg Tab 10 Mg PO HS Memantine 10 Mg Tab 10 Mg PO DAILY Losartan (Losartan Potassium) 25 Mg Tab 25 Mg PO DAILY Azithromycin 250 Mg Tab 250 Mg PO DIRECTED Take 2 tabs (500 mg) on day 1 then 1 tab daily x 4 days. . Current Medications Medications (Trade) Dose Ordered Sig/Madi Route Start Time Stop Time Status Last Admin (Morphine Inj) 2 mg Q3H PRN IV PUSH 11/08/17 17:45 11/10/17 16:42 (Zofran Inj) 4 mg Q6HR PRN IV PUSH 11/08/17 17:45 11/08/17 20:24 (Protonix) 40 mg DAILY PO 11/09/17 09:00 11/12/17 08:47 Azithromycin 500 mg/Sodium Chloride 250 ml @ 250 mls/hr Q24H IV 11/08/17 21:00 11/11/17 20:07 (Lovenox Inj) 30 mg Q24H SQ 11/10/17 11:00 11/12/17 08:47 (Ash 7.5-325 Mg) 1 tab Q3H PRN PO 11/09/17 11:00 11/10/17 11:24 (Morphine Inj) 3 mg Q3H PRN IV PUSH 11/09/17 11:00 (Vitamin D3) 5,000 units DAILY PO 11/10/17 09:00 11/12/17 08:47 (Catapres) 0.1 mg Q6H PRN PO 11/09/17 12:30 11/12/17 08:47 Sodium Chloride 1,000 ml @ 75 mls/hr [id number] IV 11/10/17 11:45 11/12/17 03:45 (Wellbutrin Xl 24 Hr) 150 mg DAILY PO 11/13/17 09:00 (Sinemet 25-100 Mg) 1 tab Q8HR PO 11/12/17 14:00 11/12/17 12:50 (Aricept) 10 mg HS PO 11/12/17 21:00 (Cozaar) 25 mg DAILY PO 11/13/17 09:00 (Namenda) 10 mg DAILY PO 11/12/17 12:00 11/12/17 12:50 (Pravachol) 40 mg BID PO 11/12/17 21:00 Patient Own Medication PT OWN MED: VORTIOXETINE (TRINTELLIX... DAILY PO 11/12/17 12:00 Future Hold Family History Patient has 2 children who are alive and well. . Substance Use Tobacco: Former smoker. Quit in 1984. Alcohol: None. Prescription med abuse: None Illicits: None. . Psychosocial History Patient originally from [place]. Moved to [place] 35 years ago. for 58 years, she has 2 children. One son in [place] and a daughter in [place]. 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 . Spiritual/Cultural Factors Restorationist yair. . Living Will: Never completed Health Care Surrogate: Never completed Durable Power of Qc Scientist: Completed, but not made available Health Care Surrogate(s): No advance directives completed. As per [place] statue, healthcare proxy decision making falls to patient's Ed Feliz. . Family/friends goals: No code. DNR/DNI. Attempts at physical rehabilitation. . Ethical and Legal Issues No ethical legal issues identified. . Physical Exam Vital Signs Date Time Temp Pulse Resp B/P (MAP) Pulse Ox O2 Delivery O2 Flow Rate FiO2 11/12/17 12:00 97.8 77 18 123/60 (81) 95 11/12/17 09:55 96 Nasal Cannula 2.00 11/12/17 08:00 97.8 77 18 175/77 (109) 96 11/12/17 04:00 97.8 79 17 153/72 (99) 96 11/12/17 00:00 99.0 88 17 149/70 (96) 94 11/11/17 19:00 97.1 80 16 176/74 (108) 96 11/11/17 18:19 2.00 11/11/17 16:00 97.8 88 18 149/67 (94) 97 Exam CONSTITUTIONAL/GENERAL: This is a thin, frail looking elderly female in bed in no acute distress. TUBES/LINES/DRAINS: Hurtado catheter, PIV. SKIN: No jaundice, rashes, or lesions. Ecchymoses on upper extremities. Skin temperature appropriate. Not diaphoretic. Surgical incision to left hip, covered with dressing. Dressing dry, clean and intact. HEAD: Atraumatic. Normocephalic. EYES: Pupils equal and round and reactive. Extraocular motions intact. No scleral icterus. No injection or drainage. ENT: Hearing grossly normal. Nose without bleeding or purulent drainage. Moist oral mucosa. NECK: Trachea midline. Supple, nontender. CARDIOVASCULAR: Regular rate and rhythm without murmurs, gallops, or rubs. Peripheral pulses symmetric. RESPIRATORY/CHEST: Symmetric, unlabored respirations. Clear to auscultation. Breath sounds equal bilaterally. GASTROINTESTINAL: Abdomen soft, non-tender, nondistended. No guarding. Bowel sounds present. GENITOURINARY: Without palpable bladder distension. Hurtado catheter in place. MUSCULOSKELETAL: Extremities without clubbing, cyanosis, or edema. No mottling or clubbing. NEUROLOGICAL: Awake and alert x self. Confused/forgetful. Follows some simple commands.Moves all extremities. PSYCHIATRIC: No obvious anxiety/depression. . Diagnostic Tests Laboratory Laboratory Tests Test 11/09/17 17:22 11/10/17 05:19 11/10/17 05:24 11/11/17 04:37 25-Hydroxy Vitamin D Total 39.0 ng/ML (30-100) White Blood Count 13.5 TH/MM3 (4.0-11.0) 13.3 TH/MM3 (4.0-11.0) Red Blood Count 2.93 MIL/MM3 (4.00-5.30) 2.76 MIL/MM3 (4.00-5.30) Hemoglobin 9.7 GM/DL (11.6-15.3) 9.3 GM/DL (11.6-15.3) Hematocrit 28.1 % (35.0-46.0) 26.8 % (35.0-46.0) Mean Corpuscular Volume 96.0 FL (80.0-100.0) 97.1 FL (80.0-100.0) Mean Corpuscular Hemoglobin 33.2 PG (27.0-34.0) 33.7 PG (27.0-34.0) Mean Corpuscular Hemoglobin Concent 34.6 % (32.0-36.0) 34.7 % (32.0-36.0) Red Cell Distribution Width 11.9 % (11.6-17.2) 12.2 % (11.6-17.2) Platelet Count 258 TH/MM3 (150-450) 263 TH/MM3 (150-450) Mean Platelet Volume 7.5 FL (7.0-11.0) 7.4 FL (7.0-11.0) Neutrophils (%) (Auto) 80.8 % (16.0-70.0) 79.5 % (16.0-70.0) Lymphocytes (%) (Auto) 7.9 % (9.0-44.0) 11.1 % (9.0-44.0) Monocytes (%) (Auto) 11.0 % (0.0-8.0) 8.6 % (0.0-8.0) Eosinophils (%) (Auto) 0.1 % (0.0-4.0) 0.5 % (0.0-4.0) Basophils (%) (Auto) 0.2 % (0.0-2.0) 0.3 % (0.0-2.0) Neutrophils # (Auto) 11.0 TH/MM3 (1.8-7.7) 10.6 TH/MM3 (1.8-7.7) Lymphocytes # (Auto) 1.1 TH/MM3 (1.0-4.8) 1.5 TH/MM3 (1.0-4.8) Monocytes # (Auto) 1.5 TH/MM3 (0-0.9) 1.1 TH/MM3 (0-0.9) Eosinophils # (Auto) 0.0 TH/MM3 (0-0.4) 0.1 TH/MM3 (0-0.4) Basophils # (Auto) 0.0 TH/MM3 (0-0.2) 0.0 TH/MM3 (0-0.2) CBC Comment DIFF FINAL DIFF FINAL Differential Comment Blood Urea Nitrogen 14 MG/DL (7-18) 15 MG/DL (7-18) Creatinine 0.86 MG/DL (0.50-1.00) 0.76 MG/DL (0.50-1.00) Random Glucose 125 MG/DL (74-106) 100 MG/DL (74-106) Calcium Level 8.6 MG/DL (8.5-10.1) 8.2 MG/DL (8.5-10.1) Magnesium Level 1.9 MG/DL (1.5-2.5) 2.0 MG/DL (1.5-2.5) Sodium Level 136 MEQ/L (136-145) 140 MEQ/L (136-145) Potassium Level 4.1 MEQ/L (3.5-5.1) 4.2 MEQ/L (3.5-5.1) Chloride Level 102 MEQ/L (98-107) 106 MEQ/L (98-107) Carbon Dioxide Level 26.8 MEQ/L (21.0-32.0) 24.8 MEQ/L (21.0-32.0) Anion Gap 7 MEQ/L (5-15) 9 MEQ/L (5-15) Estimat Glomerular Filtration Rate 64 ML/MIN (>89) 74 ML/MIN (>89) Lactic Acid Level 0.7 mmol/L (0.4-2.0) Result Diagram: 11/11/17 0437 11/11/17 0437 Imaging Last Impressions Hip and Pelvis X-Ray 11/09/17 1052 Signed Impressions: Service Date/Time: Thursday, November 09, 2017 13:15 - CONCLUSION: Anatomic alignment. Adilson Friedman MD Elbow X-Ray 11/09/17 0000 Signed Impressions: Service Date/Time: Thursday, November 09, 2017 07:13 - CONCLUSION: Unremarkable limited examination of the left elbow. Nayely Dubose MD Femur X-Ray 11/08/17 1505 Signed Impressions: Service Date/Time: October 15:45 - CONCLUSION: 1. No acute fracture or dislocation. Blaise Saul MD Chest X-Ray 11/08/17 1505 Signed Impressions: Service Date/Time: October 15:42 - CONCLUSION: Old granulomatous disease. Nothing acute. Girish Miller MD Pelvis CT 11/08/17 0000 Signed Impressions: Service Date/Time: October 16:24 - CONCLUSION: 1. Mildly angulated left femoral neck fracture. 2. Nondisplaced fractures of the left superior and inferior pubic rami. 3. Uncomplicated sigmoid diverticulosis. Nitish Mckeon MD Head CT 11/08/17 0000 Signed Impressions: Service Date/Time: October 16:18 - CONCLUSION: 1. No evidence of acute infarct, hemorrhage, mass or edema. 2. Stable exam. Nitish Mckeon MD Hand X-Ray 11/08/17 0000 Signed Impressions: Service Date/Time: October 16:09 - CONCLUSION: 1. No evidence of acute fracture. 2. Severe bone demineralization. Nitish Mckeon MD Cervical Spine CT 11/08/17 0000 Signed Impressions: Service Date/Time: October 16:18 - CONCLUSION: 1. Degenerative disc disease with spondylosis. 2. Intact vertebral body alignment. 3. No evidence of acute fracture. Nitish Mckeon MD Procedures * 11/09/2017 -left hemiarthroplasty. . Patient/Family Conference Present at Family Conference: Ed Feliz. Family Conference Time (mins): 41 Family Conference Location: Bedside Issues Discussed: * Palliative care role, purpose, approach * Additional medical, psychosocial, and spiritual history * Patients general health, functional status, and cognitive changes in the months leading up to the current hospitalization * Patient/family understanding of the current medical problems -severe dementia , physical deconditioning, multiple chronic comorbidities. * Patient/family understanding of prognosis -dementia is a progressive/terminal illness. * Patients goals of care as best understood from advance directives and/or conversations and/or values * Current medical treatment options and benefits/burdens of those options * Likely scenarios comparing ongoing aggressive care with a transition to comfort measures only * Questions answered to the best of my ability * Palliative care contact information provided * Risks, benefits and limitations of CPR, intubation and mechanical ventilation given severe dementia * Hospice philosophy and benefits . Assessment and Plan Disease Oriented Problem List: (1) Femoral neck fracture (2) Hypertension (3) GERD (gastroesophageal reflux disease) (4) Dementia (5) Extrapyramidal disorder Symptom Scale: (1) Pain 0-10 Scale: Unable to quantify (2) Debility 0-10 Scale: Unable to quantify (3) Poor appetite 0-10 Scale: Unable to quantify Pertinent Non-Medical Issues Psychosocial: Patient originally from [place]. Moved to [place] 35 years ago. for 58 years, she has 2 children. One son in [place] and a daughter in [place]. 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 Legal: No advance directives completed. Ethical issues impacting care: No ethical issues identified. . Important Contacts Patient's Ed Feliz . Prognosis Mrs. Feliz is a 77 y/o female with a medical history significant for dementia, extrapyramidal disorder/Parkinsonian like syndrome, GERD, osteoarthritis and vertigo. Patient presented to the emergency room on 11/08/17 via EMS for evaluation of left hip pain secondary to mechanical fall at home. Hip and pelvis x-ray revealed subcapital fracture of the left hip. Patient underwent left hemiarthroplasty without any complications. Patient with reported decline and poor oral intake, concerns of patient's nutritional status and overall debility in the setting of dementia. Patient at high risk for additional complications, continued decline and . Patient appears hospice appropriate should family elects comfort-directed care in the setting of severe dementia. . Code Status: No Code Plan * CODE STATUS: No code. DNR/DNI. Community DNR has been signed by patient's . * HEALTHCARE DECISION-MAKING: Patient unable to participating medical decision making secondary to severe dementia. No advance directives completed. As per [place] statue, healthcare proxy decision making foals to patient's Ed Feliz. has accepted this role. * GOALS OF CARE: Patient's acting as healthcare proxy decision maker is electing to pursue conservative medical management short of NO resuscitation, NO invasive interventions/procedures, NO PEG tube/artificial nutrition given patient's severe dementia, multiple chronic comorbidities, physical deconditioning and known wishes. opted for rehabilitation for patient s /p left hemiarthroplasty. Receptive to hospice services should patient's clinical condition worsen, inability to participate/tolerate physical therapy or increased symptom burden/pain. * SYMPTOMS: = Pain, status post left hemiarthroplasty. Patient with chronic back pain, home regimen to include tramadol and Tylenol. Ash 7.5/325 mg q3hr PRN and Morphine 2-3 mg q3hr PRN available. none given in the past 24 hours. No further recommendations at this time. = Debility: Progressive for the past 6 years, worsened in the past 3 years. Patient to be discharged to [facility] facility for physical strengthening, concerns about her ability to participate or tolerate PT given severe dementia. = Poor oral intake: Likely secondary to pain, hospitalization. reports that intake has improved since yesterday when he is present and is able to feed patient. declining artificial nutrition at this time. * Case discussed with case consultant. * Palliative care contact information has been provided to patient and family. * Palliative care will continue to follow up for further clarification of goals of care as patient's clinical course continues to evolve. . Time Spent Total Floor Time (mins): 64 (Total time to include review and summarization of available medical records to include prior ED visits and hospitalizations, physical exam, goals of treatment conversation with patient's , case discussion with case consultant.) >50% Counseling/Coord of Care: Yes Thank you for the opportunity to participate in the care of Ms. Feliz. Attestation To help prompt me to consider important information that might be impacting today's encounter and assessment, information from prior notes written by myself or my colleagues may have been "brought forward" into today's note. My signature on this note, however, is an attestation that I personally performed the exam, history, and/or decision-making noted today, and, unless otherwise indicated, the interactions with patient, family, and staff as well as the review of records all occurred today. I also attest that the listed assessment and stated plan reflect my best clinical judgment today based on the combination of historical information, prior notes, and today's exam/ interactions. When time spent is documented, it refers only to time spent today by the signer, or if indicated, combined time spent today by collaborating physician/nurse practitioner. Jennifer Klein Nov 12, 2017 14:16
--- NOTE | 2017-11-12 17:07 | HHI.PR ---
Subjective Remarks No new complaints. improved PO intake from Sunday. Objective Vitals Vital Signs Date Time Temp Pulse Resp B/P (MAP) Pulse Ox O2 Delivery O2 Flow Rate FiO2 11/12/17 12:00 97.8 77 18 123/60 (81) 95 11/12/17 09:55 96 Nasal Cannula 2.00 11/12/17 08:00 97.8 77 18 175/77 (109) 96 11/12/17 04:00 97.8 79 17 153/72 (99) 96 11/12/17 00:00 99.0 88 17 149/70 (96) 94 11/11/17 19:00 97.1 80 16 176/74 (108) 96 11/11/17 18:19 2.00 Result Diagram: 11/11/17 0437 11/11/17 043 Imaging Last Impressions Hip and Pelvis X-Ray 11/09/17 1052 Signed Impressions: Service Date/Time: Thursday, November 09, 2017 13:15 - CONCLUSION: Anatomic alignment. Adilson Friedman MD Elbow X-Ray 11/09/17 0000 Signed Impressions: Service Date/Time: Thursday, November 09, 2017 07:13 - CONCLUSION: Unremarkable limited examination of the left elbow. Nayely Dubose MD Femur X-Ray 11/08/17 1505 Signed Impressions: Service Date/Time: October 15:45 - CONCLUSION: 1. No acute fracture or dislocation. Blaise Saul MD Chest X-Ray 11/08/17 1505 Signed Impressions: Service Date/Time: October 15:42 - CONCLUSION: Old granulomatous disease. Nothing acute. Girish Miller MD Pelvis CT 11/08/17 0000 Signed Impressions: Service Date/Time: October 16:24 - CONCLUSION: 1. Mildly angulated left femoral neck fracture. 2. Nondisplaced fractures of the left superior and inferior pubic rami. 3. Uncomplicated sigmoid diverticulosis. Nitish Mckeon MD Head CT 11/08/17 0000 Signed Impressions: Service Date/Time: October 16:18 - CONCLUSION: 1. No evidence of acute infarct, hemorrhage, mass or edema. 2. Stable exam. Nitish Mckeon MD Hand X-Ray 11/08/17 0000 Signed Impressions: Service Date/Time: October 16:09 - CONCLUSION: 1. No evidence of acute fracture. 2. Severe bone demineralization. Nitish Mckeon MD Cervical Spine CT 11/08/17 0000 Signed Impressions: Service Date/Time: October 16:18 - CONCLUSION: 1. Degenerative disc disease with spondylosis. 2. Intact vertebral body alignment. 3. No evidence of acute fracture. Nitish Mckeon MD Objective Remarks GENERAL: NAD CARDIOVASCULAR: Regular rate and rhythm without murmurs, gallops, or rubs. RESPIRATORY: Clear to auscultation. Breath sounds equal bilaterally. No wheezes , rales, or rhonchi. GASTROINTESTINAL: Abdomen soft, non-tender, nondistended. Normal active bowel sounds MUSCULOSKELETAL: Extremities without clubbing, cyanosis, or edema. NEURO: oriented to self, [facility] A/P Problem List: (1) Femoral neck fracture ICD Codes: S72.009A - Fracture of unspecified part of neck of unspecified femur , initial encounter for closed fracture Status: Acute Plan: Left hip fracture Pelvic fractures - Pt is a 77 y/o female who was brought in s/p fall at home - Imaging studies revealed mildly angulated left femoral neck fracture and nondisplaced fractures of the left superior and inferior pubic rami. - Pt s/p left hip hemiarthroplasty on 11/09/17, by Dr. Vic Beckett - Weightbearing as tolerated with posterior hip precautions - Knee immobilizer when in bed - PT daily - discharge to SNF 11/13 if pt remains stable Bronchitis - Pt was started on azithromycin by her primary care physician the day prior to admission - This was continued at admission. Dementia Anxiety Depression - Continue home meds. GERD - Continue Protonix Extrapyramidal disorder - Continue home meds. - Outpt f/u with neurology. (2) Pelvic fracture ICD Codes: S32.9XXA - Fracture of unspecified parts of lumbosacral spine and pelvis, initial encounter for closed fracture Status: Acute (3) Bronchitis ICD Codes: J40 - Bronchitis, not specified as acute or chronic Status: Acute (4) GERD (gastroesophageal reflux disease) ICD Codes: K21.9 - Gastro-esophageal reflux disease without esophagitis (5) Extrapyramidal disorder ICD Codes: G25.9 - Extrapyramidal and movement disorder, unspecified Status: Chronic (6) Major depression ICD Codes: F32.9 - Major depressive disorder, single episode, unspecified Status: Chronic (7) Anxiety ICD Codes: F41.9 - Anxiety disorder, unspecified Status: Chronic (8) Hypertension ICD Codes: I10 - Essential (primary) hypertension Status: Chronic (9) Dementia ICD Codes: F03.90 - Unspecified dementia without behavioral disturbance Status: Chronic Problem Qualifiers (1) Femoral neck fracture: (2) Pelvic fracture: Qualified Codes: S32.502A - Unspecified fracture of left pubis, initial encounter for closed fracture (3) Major depression: (4) Hypertension: Qualified Codes: I10 - Essential (primary) hypertension (5) Dementia: Valdemar Agrawal DO Nov 12, 2017 17:07
[2017-11-12] MEDS: AZITHROMYCIN INJ 500 MG in SODIUM CHLOR 0.9% 250 ML INJ 250 ML IV SCH (19:49)
[2017-11-12] MEDS: PRAVASTATIN SOD 40 MG TAB PO SCH (19:51)
[2017-11-12] MEDS ORDERED: DONEPEZIL HCL 5 MG TAB PO SCH (21:00)
[2017-11-13] MEDS ORDERED: LACTULOSE SYRUP 20 GM/30 ML CUP PO PRN (02:15)
[2017-11-13] MEDS ORDERED: BISACODYL 10 MG SUPP RECTAL PRN (02:15)
[2017-11-13] MEDS ORDERED: SENNOSIDES 8.6 MG TAB PO PRN (02:15)
[2017-11-13 02:43] VITALS: BP 175/84; PULSE 75; RESP 16; TEMP 98.9; O2SAT 95
[2017-11-13] MEDS: CARBIDOPA/LEVODOPA 25 MG/100 MG TAB PO SCH ×2 (04:58→16:25)
[2017-11-13 05:43] VITALS: BP 152/71; PULSE 75; RESP 16; TEMP 98.7; O2SAT 95
[2017-11-13 08:00] VITALS: BP 186/79; PULSE 72; RESP 19; TEMP 98; O2SAT 96
[2017-11-13] MEDS ORDERED: LOSARTAN 25 MG TAB PO SCH (09:00)
[2017-11-13] MEDS ORDERED: buPROPion HCL 150 MG SUSTAINED RELEASE TAB PO SCH (09:00)
[2017-11-13] MEDS ORDERED: MAGNESIUM HYDROXIDE SUSP 30 ML CUP PO SCH (09:00)
[2017-11-13] MEDS ORDERED: buPROPion HCL 150 MG EXTENDED RELEASE TAB PO SCH (09:00)
[2017-11-13 09:16] VITALS: O2SAT 96
[2017-11-13] MEDS: CHOLECALCIFEROL (VIT D3) 5000 UNIT CAP PO SCH (10:37)
[2017-11-13] MEDS: PANTOPRAZOLE SOD 40 MG DELAYED RELEASE TAB PO SCH (10:37)
[2017-11-13] MEDS: PRAVASTATIN SOD 40 MG TAB PO SCH (10:37)
[2017-11-13] MEDS: MEMANTINE HCL 10 MG TAB PO SCH (10:37)
[2017-11-13] MEDS: cloNIDine HCL 0.1 MG TAB PO PRN (10:40)
[2017-11-13] MEDS: ENOXAPARIN SODIUM 30 MG/0.3 ML SYRINGE SQ SCH (10:41)
--- NOTE | 2017-11-13 12:48 | HHI.DCPOC ---
Discharge Care Plan Diagnosis: (1) Pelvic fracture (2) Hip fracture (3) Debility (4) Poor appetite (5) Hypertension (6) Dementia Goals to Promote Your Health * To prevent worsening of your condition and complications * To maintain your health at the optimal level Directions to Meet Your Goals Take your medications as prescribed Follow your dietary instruction Follow activity as directed Keep your appointments as scheduled Take your immunizations and boosters as scheduled If your symptoms worsen call your PCP, if no PCP go to Urgent Care Center or Emergency Room Smoking is Dangerous to Your Health. Avoid second hand smoke Call the 24-hour hour crisis hotline for domestic abuse at Valdemar Agrawal DO Nov 13, 2017 12:48
--- NOTE | 2017-11-13 12:57 | HHI.DS ---
Discharge Summary Admission Date Nov 08, 2017 at 17:41 Discharge Date: Nov 13, 2017 Admitting Diagnosis left hip fracture (1) Femoral neck fracture Diagnosis: Principal ICD Codes: S72.009A - Fracture of unspecified part of neck of unspecified femur , initial encounter for closed fracture Status: Acute (2) Pelvic fracture Diagnosis: Principal ICD Codes: S32.9XXA - Fracture of unspecified parts of lumbosacral spine and pelvis, initial encounter for closed fracture Status: Acute (3) Bronchitis Diagnosis: Secondary ICD Codes: J40 - Bronchitis, not specified as acute or chronic Status: Acute (4) GERD (gastroesophageal reflux disease) Diagnosis: Secondary ICD Codes: K21.9 - Gastro-esophageal reflux disease without esophagitis (5) Extrapyramidal disorder Diagnosis: Secondary ICD Codes: G25.9 - Extrapyramidal and movement disorder, unspecified Status: Chronic (6) Major depression Diagnosis: Secondary ICD Codes: F32.9 - Major depressive disorder, single episode, unspecified Status: Chronic (7) Anxiety Diagnosis: Secondary ICD Codes: F41.9 - Anxiety disorder, unspecified Status: Chronic (8) Hypertension Diagnosis: Secondary ICD Codes: I10 - Essential (primary) hypertension Status: Chronic (9) Dementia Diagnosis: Secondary ICD Codes: F03.90 - Unspecified dementia without behavioral disturbance Status: Chronic Brief History History is obtained primarily from chart review and discussion with ER provider as patient is unable to provide any significant history given her underlying dementia and her is not immediately available. I called phone number listed and leave a message. 77-year-old female with history of dementia associated with extrapyramidal disorder/Parkinson's syndrome presents emergency department for evaluation of right hip pain that occurred after a fall just prior to arrival. Patient arrives by EVAC states that patient does not know how she fell. She apparently has a history of dementia and is very poor historian. Her was present during the initial evaluation and assisted with a history. Says that she does have a history of Parkinson's like movements and dementia. Says that he heard her fall in their home and was immediately able to assist her however, she was unable to walk because of the pain in her left hip and leg. He did not see the fall and is not sure what actually caused her to fall. Says that he found her laying on her left side with her arm under her. Patient reports she has pain in her left arm and in her hip/pelvis region. She denies any numbness or tingling. He tells me that she has a history of a compression fracture and a disc protrusion in the lower lumbar region but apparently did not complain of any lower back pain today. She also has a history of urinary incontinence. CBC/BMP: 11/11/17 0437 11/11/17 0437 Significant Findings Laboratory Tests Test 11/11/17 04:37 White Blood Count 13.3 TH/MM3 (4.0-11.0) Red Blood Count 2.76 MIL/MM3 (4.00-5.30) Hemoglobin 9.3 GM/DL (11.6-15.3) Hematocrit 26.8 % (35.0-46.0) Neutrophils (%) (Auto) 79.5 % (16.0-70.0) Monocytes (%) (Auto) 8.6 % (0.0-8.0) Neutrophils # (Auto) 10.6 TH/MM3 (1.8-7.7) Monocytes # (Auto) 1.1 TH/MM3 (0-0.9) Calcium Level 8.2 MG/DL (8.5-10.1) Estimat Glomerular Filtration Rate 74 ML/MIN (>89) PE at Discharge GENERAL: NAD CARDIOVASCULAR: Regular rate and rhythm without murmurs, gallops, or rubs. RESPIRATORY: Clear to auscultation. Breath sounds equal bilaterally. No wheezes , rales, or rhonchi. GASTROINTESTINAL: Abdomen soft, non-tender, nondistended. Normal active bowel sounds MUSCULOSKELETAL: Extremities without clubbing, cyanosis, or edema. NEURO: oriented to self, [facility] Course (1) Femoral neck fracture ICD Codes: S72.009A - Fracture of unspecified part of neck of unspecified femur , initial encounter for closed fracture Status: Acute Plan: Left hip fracture Pelvic fractures - Pt is a 77 y/o female who was brought in s/p fall at home - Imaging studies revealed mildly angulated left femoral neck fracture and nondisplaced fractures of the left superior and inferior pubic rami. - Pt s/p left hip hemiarthroplasty on 11/09/17, by Dr. Vic Beckett - Weightbearing as tolerated with posterior hip precautions - Knee immobilizer when in bed - PT daily - discharge to SNF Bronchitis - Pt was started on azithromycin by her primary care physician the day prior to admission - no further abx upon discharge Dementia Anxiety Depression - Continue home meds. GERD - Continue Protonix Extrapyramidal disorder - Continue home meds. - Outpt f/u with neurology. Pt Condition on Discharge: Stable Discharge Disposition: Discharge to SNF Discharge Instructions DIET: Follow Instructions for: Heart Healthy Diet Activities you can perform: Partial Weight Bearing Activities to Avoid: Strenuous Activity Other Activity Instructions: activity level per Orthopedic service Follow up Referrals: Orthopedics - 2 Weeks [facility] with Vic Beckett MD PCP Follow-up - [address] Joaquín Madison New Medications: Calcium Carbonate-Vitamin D (Calcium 600+D 200) 600-200 Mg-Unit Tab 1 TAB PO BID for Nutritional Supplement, #90 TAB 0 Refills Ergocalciferol (Ergocalciferol) 50,000 Unit Cap 46902 UNITS PO Q7D for Nutritional Supplement, #8 CAP Hydrocodone-Acetaminophen (Canjilon) 5 Mg-325 Mg Tab 1 TAB PO Q4H PRN for PAIN, #60 TAB 0 Refills Rivaroxaban (Xarelto) 10 Mg Tab 10 MG PO DAILY for Blood Clot Prevention, #14 TAB 0 Refills Walker/Adult/Folding (Walker/Adult/Folding) 1 Mis Mis EA .XX DIRECTED, #1 0 Refills Continued Medications: Bupropion HCl ER 24 HR (Bupropion HCl ER 24 HR) 150 Mg Tab 150 MG DAILY for Control Depression, TAB 0 Refills Carbidopa-Levodopa (Carbidopa-Levodopa) 25-100 Mg Tab 1 TAB PO Q8HR for Parkinson Disease Mgmt, #90 TAB 0 Refills Clonazepam (Clonazepam) 0.5 Mg Tab 0.5 MG PO DAILY, #60 TAB 0 Refills Coenzyme Q10 (Ubidecarenone) (Coq-10) 50 Mg Cap 200 MG PO DAILY Coenzyme Q10 (Ubidecarenone) (Coq10) 50 Mg Cap Cyanocobalamin (Vitamin B-12) 1,000 Mcg Tab 2000 MCG PO DAILY for Nutritional Supplement, #1 BOTTLE 0 Refills Donepezil (Donepezil) 10 Mg Tab 10 MG PO HS for Dementia, #30 TAB 0 Refills k-Eamryibhfurk-Ejzep (Deplin) 15 Mg Cap Losartan (Losartan) 25 Mg Tab 25 MG PO DAILY for Blood Pressure Management, #30 TAB 0 Refills Memantine (Memantine) 10 Mg Tab 10 MG PO DAILY for Alzheimer's Dementia, TAB 0 Refills Multiple Vitamin (Multiple Vitamin) 1 Tab 1 TAB PO DAILY for Nutritional Supplement, TAB 0 Refills Ofloxacin Opth Drops (Ofloxacin Opth Drops) 0.3 % Drops 1 DROP EACH EYE Q6HR, #1 BOTTLE [place]-3 Fatty Acids ([place] 3 500 500 mg) 500 Mg (200 Mg-300 Mg)-1,000 Mg Cap 500 MG PO DAILY for Nutritional Supplement Pantoprazole (Pantoprazole) 40 Mg Tab 40 MG PO DAILY for Reflux, #30 TAB 0 Refills Pravastatin (Pravastatin) 40 Mg Tab 40 MG PO BID for Cholesterol Management, #30 TAB 0 Refills Vortioxetine (Trintellix) 20 Mg Tab 20 MG PO DAILY for Control Depression, #30 TAB 0 Refills Discontinued Medications: Acetaminophen (Mapap) 325 Mg Tab 650 MG PO Q4-6H PRN for PAIN, TAB 0 Refills Azithromycin (Azithromycin) 250 Mg Tab 250 MG PO DIRECTED for Infection, #6 TAB 0 Refills Take 2 tabs (500 mg) on day 1 then 1 tab daily x 4 days. Cholecalciferol (Vitamin D3) 400 Unit Cap 1600 UNITS PO DAILY for Nutritional Supplement, #1 BOTTLE 0 Refills Tramadol (Tramadol) 50 Mg Tab 50 MG PO Q8H PRN for PAIN, TAB 0 Refills [Calcium] () 900 MG PO DAILY Valdemar Agrawal DO Nov 13, 2017 12:57
[2017-11-13] MEDS ORDERED: CLON0.5T PO (12:59)
[2017-11-13 16:00] VITALS: BP 130/61; PULSE 70; RESP 18; TEMP 98; O2SAT 97
[2017-11-13 17:26] VITALS: O2SAT 97
== END 2017-11-13 19:40 | DRG 956 ==
LOC: NEPC 14:37 → NEDA 17:41 → N06B 20:27
PROVIDERS: ADMIT Hospitalist; ATTEND Hospitalist
PROC: 0SRS0J9 Replacement of Left Hip Joint, Femoral Surface with Synthetic Substitute, Cemented, Open Approach (ICD-10-PCS; principal; 2017-11-09 09:37)
DX: S72.012A Unspecified intracapsular fracture of left femur, initial encounter for closed fracture (principal); S32.512A Fracture of superior rim of left pubis, initial encounter for closed fracture; G20 Parkinson's disease; F02.80 Dementia in other diseases classified elsewhere, unspecified severity, without behavioral disturbance, psychotic disturbance, mood disturbance, and anxiety; J44.0 Chronic obstructive pulmonary disease with (acute) lower respiratory infection; G25.9 Extrapyramidal and movement disorder, unspecified; I12.9 Hypertensive chronic kidney disease with stage 1 through stage 4 chronic kidney disease, or unspecified chronic kidney disease; W18.30XA Fall on same level, unspecified, initial encounter; M19.90 Unspecified osteoarthritis, unspecified site; K21.9 Gastro-esophageal reflux disease without esophagitis; E78.00 Pure hypercholesterolemia, unspecified; Z96.651 Presence of right artificial knee joint; Z66 Do not resuscitate; N18.3 Chronic kidney disease, stage 3 (moderate); M81.0 Age-related osteoporosis without current pathological fracture; F41.9 Anxiety disorder, unspecified; F32.9 Major depressive disorder, single episode, unspecified; Y92.009 Unspecified place in unspecified non-institutional (private) residence as the place of occurrence of the external cause; Z87.891 Personal history of nicotine dependence; M50.30 Other cervical disc degeneration, unspecified cervical region; M47.9 Spondylosis, unspecified; M25.522 Pain in left elbow; J40 Bronchitis, not specified as acute or chronic
CPT/HCPCS: 51702; 70450; 71045; 72125; 72192; 73070; 73130; 73502; 73552; 80048; 80053; 81001; 82306; 82550; 83605; 83735; 84484; 85025; 85610; 85730; 86850; 86900; 86901; 93005; 96374; 96375; C1776; J0456; J0690; J1100; J1580; J1650; J2270; J2370; J2405; J3010; J3370; J7030; J7040; J7050; L1830